=== PATIENT | male | born 1950 | race Caucasian/White ===

== ENCOUNTER 2018-12-31 12:05 | Observation (INO) ==
--- NOTE | 2018-12-31 13:00 | History & Physical Report ---
Date of Encounter: 12/31/18 Time of Encounter: 12:50 24 Hour HP Update - Instructions Instructions: If the History and Physical is less than 30 days old and was completed prior to A.M. admission and or procedure and has NOT been updated on calendar day of procedure please complete this update prior to performing procedure. - Update Patient reports changes in Medical Condition: No Changes in examination, assessment, or condition: No Changes in Medication: No Preop tests/diagnostics Reviewed: Yes Surgery Remains Indicated: Yes Consent for Planned Operative Procedure(s) Verified: Yes
--- NOTE | 2018-12-31 13:06 | Anesthesia Evaluation PreOp ---
Date of Encounter: 12/31/18 Time of Encounter: 13:04 - Past History Planned Operation: ERCP Cardiac History: HTN, Hyperlipidemia, Other (Cardiology consult during hospitalization : Troponins elevated at 0.04 -> 0.09 -> 0.03 Elevations likely 2/2 sepsis with pneumonia No chest pain EKG without ischemic changes Pt denies any previous cardiac history, however does have HTN and DM2 which was recently diagnosed Medication review dose show daily 81mg ASA. Continue Do not believe further cardiac workup is indicated at this time, however echocardiogram was discussed with pt. He is currently declining all cardiac workup including echo and/or stress testing, stating "if I have to do it I would rather do it at the OR". Cardiology will sign off at this time. Please call with any questions. 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: Other (Bipolar disorder, schizophrenia) Other Medical History: Hepatic (October 2018 - hospitalized for liver abscess/sepsis/pneumonia secondary to intra-hepatic gallbladder rupture - required percutaneous drainage/abx), Diabetes Type II (well controlled; not insulin dependent), Other (BMI 43) Anesthesia History: No Prior Anesthetic Complications, Past Anesthesia (tonsillectomy, endoscopy) Alcohol Use: none Drug use: none Medications and Allergies Allopurinol [Zyloprim] 300 mg PO DAILY 11/05/18 [History] Aripiprazole Lauroxil [Aristada] 400 mg IM Q28D 11/05/18 [History] Aspirin [Lo-Dose Aspirin EC] 81 mg PO DAILY 11/05/18 [History] Dextran 70/Hypromellose/Pf [Artificial Tears Drops] 1 drop BOTH EYES TID 11/05/18 [History] Divalproex (24 HR) [Depakote ER (24 HR)] 1,500 mg PO HS 11/05/18 [History] Finasteride [Proscar] 5 mg PO DAILY 11/05/18 [History] Furosemide [Lasix] 40 mg PO DAILY 11/05/18 [History] Gabapentin [Neurontin] 200 mg PO HS 11/05/18 [History] Imatinib Mesylate [Gleevec] 400 mg PO DAILY 11/05/18 [History] Loperamide [Imodium] 4 mg PO DAILY 11/05/18 [History] Metoprolol Tartrate [Lopressor] 25 mg PO BID 11/05/18 [History] Tamsulosin [Flomax] 0.4 mg PO DAILY 11/05/18 [History] Tiotropium [place] [Spiriva Respimat] 2 puff IN DAILY 11/05/18 [History] amLODIPine [Norvasc] 10 mg PO DAILY 11/05/18 [History] metFORMIN [Glucophage] 500 mg PO BIDWM 11/05/18 [History] Amoxicillin/Clavulanate [Augmentin] 875 mg PO BIDWM #8 tablet 11/10/18 [Rx] Budesonide/Formoterol 160/4.5 [Symbicort 160/4.5] 2 puff IH BIDR #60 inh 11/10/18 [Rx] Allergy/AdvReac Type Severity Reaction Status Date / Time No Known Allergies Allergy Verified 11/04/18 18:23 - Meds/Allergy Pre-op Review Medications Reviewed: Yes Allergies Reviewed: Yes Beta Blockers on Current Med List: Yes If Beta Blockers taken, Date/Time (Last Dose taken): 12-30-18 metoprolol 17:00 Anesthesia Results - Labs Laboratory Tests 11/05/18 11/08/18 11/30/18 17:09 02:56 22:00 WBC 9.9 Hgb 12.3 L Hct 39.2 Plt Count 281 PT 14.6 H INR 1.3 Sodium Potassium Chloride Carbon Dioxide BUN Creatinine Est GFR ( Amer) Est GFR (Non-Af Amer) BUN/Creatinine Ratio Glucose Est Mean Plasma Glucose 140 Hemoglobin A1c 6.5 H Calculated Osmolality Calcium Total Bilirubin Direct Bilirubin Indirect Bilirubin AST ALT Alkaline Phosphatase 11/30/18 22:00 WBC Hgb Hct Plt Count PT INR Sodium 142 Potassium 4.4 Chloride 101 Carbon Dioxide 32 H BUN 16 Creatinine 0.89 Est GFR ( Amer) > 60 Est GFR (Non-Af Amer) > 60 BUN/Creatinine Ratio 18 Glucose 106 H Est Mean Plasma Glucose Hemoglobin A1c Calculated Osmolality 296 Calcium 8.9 Total Bilirubin 0.5 Direct Bilirubin 0.2 Indirect Bilirubin 0.3 AST 14 ALT 9 Alkaline Phosphatase 68 - Imaging EKG: report reviewed, image reviewed (SINUS TACHYCARDIA BORDERLINE RIGHT AXIS DEVIATION ABNORMAL RHYTHM ECG) Additional studies: TTE: Impressions: LVEF 60%. Normal right ventricular structure and function. Mild mitral regurgitation. Mild tricuspid regurgitation. Mild pulmonary hypertension. Anesthesia Exam Last Vital Signs Temp 97.9 F 12/31/18 12:26 Pulse 93 12/31/18 12:26 Resp 18 12/31/18 12:26 BP 118/80 12/31/18 12:26 Pulse Ox 95 12/31/18 12:26 Weight: 129 kg NPO (# of Hours): > 8 hrs - HEENT Pupil (Motor): Pupils equal, EOMI Mallampati: III Teeth: Edentulous Oral Opening: Greater than 3 - PLANIMETER OPERATOR LOC: Oriented - Cardiac Rhythm: Regular Murmur: None - Pulmonary Breath Sounds: bilateral Clear Respiratory Effort: Symmetrical Anesthesia Assess/Plan ASA Score: 3 Level of consciousness: Cooperative Anesthetic Plan: General Monitoring Plan: Standard Monitors Recovery Plan: PACU
[2018-12-31] MEDS ORDERED: *HR* Promethazine 25 MG/ML VIAL IVP PRN (13:11)
[2018-12-31] MEDS ORDERED: *HR* OxyCODONE Immed Rel 5 MG TABLET PO PRN ×2 (13:11→20:59)
[2018-12-31] MEDS ORDERED: Ringers Solution, Lactated 1,000 ML IVC SCH ×2 (13:15→21:00)
[2018-12-31] MEDS ORDERED: *HR* FentaNYL (PF) 100 MCG/2 ML VIAL ONE (13:24)
[2018-12-31] MEDS ORDERED: Indomethacin 50 MG SUPP.RECT RC ONE (13:26)
[2018-12-31] MEDS ORDERED: Albuterol 2.5 MG/3 ML NEBULIZER IH ONE (16:25)
[2018-12-31] MEDS ORDERED: Albuterol 2.5 MG/3 ML NEBULIZER ONE (16:26)
--- NOTE | 2018-12-31 17:20 | Anesthesia Evaluation Post Op ---
Date of Encounter: 12/31/18 Time of Encounter: 17:17 - Vital Signs Vital Signs: Last Vital Signs Temp 97.7 F 12/31/18 15:18 Pulse 89 12/31/18 16:51 Resp 20 12/31/18 16:51 BP 153/78 12/31/18 16:51 Pulse Ox 94 12/31/18 16:51 On 2L nc - Lungs Lungs: Clear Ascult./Percussion - Airway Airway: Non-obstructed - Cardiovascular Irregular Rate, New Rhythm - Mental Status Mental Status: Alert & Oriented, Answers Appropriately - Pain Pain Scale: 0 - Nausea Vomiting Nausea Vomiting: Not Present - Hydration Hydration: Tolerates oral liquids - Discharge PostOp Status: Transfer Patient to floor (Patient is unable to maintain his oxygenation with minimal exertion (walking to the bathroom). Of note, he also developed atrial fibrillation (a new condition for him) while under general anesthesia that persisted during recovery. Although he develops dyspnea with exertion (walking to the restroom), while sitting upright with a nasal canula, he is asymptomatic. He was recently hospitalized (late October 2018) for sepsis caused from a hepatic abscess the result of intra-hepatic gallbladder rupture. He was also diagnosed with pneumonia at that time. He was also seen by cardiology at that time (for mildly elevated troponins), suspecting demand ischemia related to the sepsis/pneumonia. His TTE was unremarkable. For multiple reasons, he will be admitted to the hospitalist service.)
[2018-12-31] MEDS ORDERED: *HR* Succinylcholine 200 MG/10 ML VIAL IVP ONE (18:46)
[2018-12-31] MEDS ORDERED: Lidocaine 2% Syringe 100 MG/5 ML IV ONE (18:46)
[2018-12-31] MEDS ORDERED: Ondansetron 4 MG/2 ML VIAL IVP ONE (18:46)
[2018-12-31] MEDS ORDERED: Lidocaine -MPF 4% 5 ML AMPUL INFILT ONE (18:46)
[2018-12-31] MEDS ORDERED: *HR* Propofol 200 MG/20 ML VIAL IVP ONE (18:46)
[2018-12-31] MEDS ORDERED: traMADol 50 MG TABLET PO PRN (20:59)
[2018-12-31] MEDS ORDERED: Acetaminophen 325 MG TABLET PO PRN (20:59)
[2018-12-31] MEDS ORDERED: Naloxone 0.4 MG/ML INJ IVP PRN (20:59)
[2018-12-31] MEDS ORDERED: *HR* Dextrose 50 % in Water (Syg) 50 ML SYRINGE IVP PRN (20:59)
[2018-12-31] MEDS ORDERED: Dextrose Gel 15 GM/37.5 ML TUBE PO PRN ×2 (20:59)
[2018-12-31] MEDS ORDERED: Ipratropium/Albuterol Neb 3 ML IH PRN (21:01)
--- NOTE | 2018-12-31 21:17 | Internal Med History&Physical ---
Date of Encounter: 12/31/18 Time of Encounter: 21:16 Internal Medicine - H&P: HPI Chief complaint: afib Admitted From: Home Plans for Post Hospital Care: Home History of present illness: Jose Juan Gamino is a 68-year-old morbidly obese man with hypertension, diabetes, diastolic heart failure and COPD from an active smoking history who was admitted here 2 months ago with sepsis and found to have acute cholecystitis and a liver abscess complicated by bacteremia from a perforated gallbladder. A WILLIAM drain was placed and sent home on antibiotics, scheduled for outpatient cholecystectomy. Repeat abdomen CT done 3 weeks ago shows near-complete resolution of the fluid collection and newly found choledocholithiasis which seemed to explain the ongoing drainage in the right upper quadrant drain. He underwent an ERCP today with placement of a stent in the common bile duct. It is stated that during the procedure well under general anesthesia he developed atrial fibrillation which apparently is a new condition for him and it persisted during his recovery period. As such it was determined he be admitted for ongoing observation. The time of my assessment he is lying comfortably in bed in no acute distress req uesting to eat food and drink liquids as he has been nothing by mouth since the morning. He offers no complaints at this time and feels well. Vitals: Reviewed General: He is a white male lying in bed in NAD. Skin: Pale, warm and dry. HEENT: Moist mucous membranes. No conjunctivae pallor. Neck: No lymphadenopathy. No JVD. No carotid bruits. No palpable thyroid. Chest: Normal thoracic expansion. Normal breath sounds. Clear to auscultation. Heart: Irregularly irregular. No rubs or murmurs. Abdomen: Distended, soft and non-tender to palpation. No peritoneal reaction. WILLIAM drain in RUQ with yellowish content in the bulb. Extremities: No clubbing, cyanosis. 1+ lower leg edema. No calf tenderness. Normal distal pulses. Neurological: Awake, alert and oriented to person, place and time. No focal deficits. Psych: Affect appropriate. Assessment/Plan 1. Intraoperative atrial fibrillation: As reported by the anesthesiologist. EKG performed subsequently is questionable for afib. Will repeat and observe on telemetry. Will obtain serum chemistries to ensure his electrolytes are within normal limits. At this time he appears to be rate controlled and not requiring urgent intervention. We will continue his home dose of metoprolol. He has an elevated [id number] score that would warrant anticoagulation. Will hold off on this for now during his immediate postoperative period to avoid the risk of bleeding. 2. Choledocolithaisis: S/p CBD stent. Will follow with GI as an outpatient. 3. Liver abscess: Had been receiving an unspecified course of abx. Last imaging showed near resolution. Continue to follow with surgery for ongoing care and management of WILLIAM drain. 4. Hypertension: Continue amlodipine 10 mg daily. 5. Diabetes: Adequate control with an A1c of 6.5%. We will place on insulin sliding scale. 6. COPD: Currently inactive without signs of acute exacerbation. Will place on AUGUSTUS prn with LABA/ICS daily. Past Med Surg Social Fam HX - Past Medical History Medical history: cancer, COPD, diabetes, hyperlipidemia, hypertension, kidney stones Additional medical history: liver abcess, acute cholecystitits, BPH, renal abcess, gout, chronic myeloid leukemia, sleep apnea Psychiatric history: bipolar, schizophrenia - Past Surgical History Surgical History: orthopedic, other, tonsillectomy Additional surgical history: liver/abdominal abcess drain placed - Social History Smoking Status: Former smoker Smokeless Tobacco Status: No Alcohol use: none Drug use: none - Family History Father Hx Family Cardiac Disorders: Yes (HTN) Mother Hx Family Endocrine Disorder: Yes (DM) Internal Medicine - H&P: Meds Allopurinol [Zyloprim] 300 mg PO DAILY 11/05/18 [History] Aripiprazole Lauroxil [Aristada] 400 mg IM Q28D 11/05/18 [History] Aspirin [Lo-Dose Aspirin EC] 81 mg PO DAILY 11/05/18 [History] Dextran 70/Hypromellose/Pf [Artificial Tears Drops] 1 drop BOTH EYES TID 11/05/18 [History] Divalproex (24 HR) [Depakote ER (24 HR)] 1,500 mg PO HS 11/05/18 [History] Finasteride [Proscar] 5 mg PO DAILY 11/05/18 [History] Furosemide [Lasix] 40 mg PO DAILY 11/05/18 [History] Gabapentin [Neurontin] 200 mg PO HS 11/05/18 [History] Imatinib Mesylate [Gleevec] 400 mg PO DAILY 11/05/18 [History] Loperamide [Imodium] 4 mg PO DAILY 11/05/18 [History] Metoprolol Tartrate [Lopressor] 25 mg PO BID 11/05/18 [History] Tamsulosin [Flomax] 0.4 mg PO DAILY 11/05/18 [History] Tiotropium [place] [Spiriva Respimat] 2 puff IN DAILY 11/05/18 [History] amLODIPine [Norvasc] 10 mg PO DAILY 11/05/18 [History] metFORMIN [Glucophage] 1,000 mg PO BIDWM 11/05/18 [History] Amoxicillin/Clavulanate [Augmentin] 875 mg PO BIDWM #8 tablet 11/10/18 [Rx] Budesonide/Formoterol 160/4.5 [Symbicort 160/4.5] 2 puff IH BIDR #60 inh 11/10/18 [Rx] Albuterol Neb [Proventil Neb] TID 12/31/18 [History] Albuterol Sulfate [Proair Respiclick] 2 puff Q6H PRN 12/31/18 [History] Ipratropium [place] 2 puff QID 12/31/18 [History] Allergy/AdvReac Type Severity Reaction Status Date / Time lisinopril AdvReac See Verified 12/31/18 13:46 Comments All Systems PM: A 10-system review of systems was performed and is negative for pertinent findings except as documented above in the HPI. - Constitutional Vitals: Temp Pulse Resp BP Pulse Ox 97.6 F 87 16 149/75 93 12/31/18 18:33 12/31/18 18:33 12/31/18 18:33 12/31/18 18:33 12/31/18 18:33 Exam: . Internal Med - H&P Results - Impressions ITS Impressions Cath/Invasive Procedure 12/31/18 14:53 IMPRESSION: Placement of a common bile duct stent. Choledocholithiasis seen on earlier CT is not appreciated on this study. Please refer to the procedure report for further details. D/ / 12/31/2018 15:33:15 Graciel[facility] Garcia MD / [facility] Interpreting Provider: Graciela Garcia MD - Time Spent With Patient Total time spent is greater than 50% in coordination of care (as documented) at patient's floor/unit and/or counseling patient: Greater than 35 minutes
[2018-12-31] MEDS: Insulin LISPRO 300 UNITS/3 ML VIAL SQ SCH (21:48)
[2018-12-31] MEDS: Budesonide/Formoterol 160/4.5 1 PUFF INH IH SCH (21:59)
[2018-12-31] MEDS: Gabapentin 100 MG CAPSULE PO SCH (22:00)
[2018-12-31] MEDS: Divalproex (24 HR) 500 MG TABLET PO SCH (22:00)
[2018-12-31] MEDS: *HR* Heparin 5,000 UNIT/ML VIAL SQ SCH (22:03)
[2018-12-31 22:10] LABS: Basophils % 0.1 %; Hematocrit 41.1 % (37.5-50.1); Hemoglobin 13.2 g/dL (12.9-16.9); Immature Granulocytes % 0.2 % (0-4); Lymphocytes # 0.7 K/mcL (0.6-4.6); Lymphocytes % 7.9 %; Mean Corpuscular HGB Conc 32.1 g/dL (31.6-35.5); Mean Corpuscular Hemoglobin 33.2 pg (28.0-33.3); Mean Corpuscular Volume 103.3 fL (83.0-100.0); Mean Platelet Volume 10.5 fL (9.4-12.4); Monocytes # 0.1 K/mcL (0.0-1.3); Monocytes % 0.5 %; Neutrophils # 8.3 K/mcL (1.6-8.9); Platelet Count 242 K/mcL (140-400); Red Blood Count 3.98 M/mcL (4.19-5.50); Red Cell Distribution Width 15.1 % (11.5-14.5); Segmented Neutrophils % 91.3 %
[2018-12-31 22:17] LABS: Prothrombin Time 11.6 Seconds (9.4-12.1)
[2018-12-31 22:20] LABS: Activated Partial Thrombo Time 37.2 Seconds (26.0-36.0)
[2018-12-31 22:31] LABS: BUN/Creatinine Ratio 19 (6-26); Blood Urea Nitrogen 12 mg/dL (8-23); Calcium 8.7 mg/dL (8.6-10.3); Carbon Dioxide 29 mEq/L (23-29); Chloride 103 mEq/L (98-107); Glucose 175 mg/dL (70-105); Osmolality,Calculated 294 (280-300); Potassium 4.4 mEq/L (3.5-5.1); Sodium 140 mEq/L (136-145); eGFR For Non-African Americans > 60 (> 60)
[2018-12-31 22:32] LABS: Troponin I < 0.03 ng/mL (< 0.04)
[2019-01-01] MEDS: *HR* Heparin 5,000 UNIT/ML VIAL SQ SCH ×3 (05:57→21:01)
[2019-01-01] MEDS: Budesonide/Formoterol 160/4.5 1 PUFF INH IH SCH ×2 (08:12→20:22)
[2019-01-01] MEDS: Finasteride 5 MG TABLET PO SCH (08:57)
[2019-01-01] MEDS: Aspirin Enteric Coated 81 MG Tablet PO SCH (08:58)
[2019-01-01] MEDS: amLODIPine 5 MG TABLET PO SCH (08:58)
[2019-01-01] MEDS: Insulin LISPRO 300 UNITS/3 ML VIAL SQ SCH ×4 (09:45→21:04)
--- NOTE | 2019-01-01 09:47 | Internal Med Progress Note ---
Hospitalist Progress Note - Encounter Date of Encounter: 01/01/19 Time of Encounter: 08:38 - Subjective Interval History: Patient seen and examined this morning at bedside. No acute overnight events. Resting comfortably. Denies any nausea vomiting or diarrhea. Denies any difficulty breathing, chest pain, palpitation or lightheadedness. - Exam Vitals: Temp Pulse Resp BP Pulse Ox 97.5 F L 73 16 155/80 95 01/01/19 06:37 01/01/19 06:37 01/01/19 08:15 01/01/19 06:37 01/01/19 08:15 Exam: General: In no acute distress. Respiratory exam: CTAB. no accessory muscle use, rales, rhonchi, wheezes Cardiovascular exam: irregular, +S1, +S2. no murmur, gallop, rubs. GI/Abdominal exam: Non-tender, Non-distended, soft, no peritoneal signs. WILLIAM drain in RUQ with yellowish brown content. Extremities exam: 1+ pedal edema on Rt leg, trace on Lt, pulses palpable in b/l lower extremities. no calf tenderness Neurological exam: CN II-XII intact, AO X3, no focal deficits. Skin exam: No skin rash - Summary of Assessment and Plan Summary of Assessment and Plan: Assessment Acute New afib Choledocolithiasis lt leg swelling DVT prophylaxis Chronic Diastolic CHF Liver abscess HTN COPD DM Plan - Has afib episoded during ERCP during anesthesia. Repeat EKG with Afib and on tele. Not known. Continued on home metoprolol with good control. Not started on anticoagulation due to recent surgery. Has [id number] of 4. Previously had demand ischemia on last admission with sepsis. Will trend trop. Obtain TSH, phosphate and . No electrolyte abnormality. Denies previous CAD. Will consult cardiology for need for ischemic evaluation. Hold for anticoagulation for atleast 3 days per GI as patient had sphincterotomy. ECHO on 11/09/18 with EF of 60%, NWM, Intermediate DD, normal RV function - s/p ERCP with sphincterotomy and stent for Choledocolithaisis. To f/u GI as an outpatient. - Had finished course of antibiotics for Liver abscess with last imaging showed near resolution. To follow with surgery for ongoing care and management of WILLIAM drain. - c/w amlodipine - c/w SSI and accuchecks. Hold home OHA. - c/w symbicort and prn bronchodilator. Not in exacerbation - heparin sc for dvt prophylaxis. Has Lt leg swelling more than Rt. Obtain DVT study. - Time Spent with Patient Total time spent is greater than 50% in coordination of care (as documented) at patient's floor/unit and/or counseling patient: Internal Medicine: Result - Labs CBC & Chem 7: 12/31/18 21:42 12/31/18 21:42 Labs: Short CBC 12/31/18 Range/Units 21:42 WBC 9.1 (4.3-11.1) K/mcL Hgb 13.2 (12.9-16.9) g/dL Hct 41.1 (37.5-50.1) % Plt Count 242 (140-400) K/mcL Neutrophils # 8.3 (1.6-8.9) K/mcL BMP 12/31/18 21:42 Sodium 140 Potassium 4.4 Chloride 103 Carbon Dioxide 29 BUN 12 Creatinine 0.64 L Glucose 175 H Calcium 8.7 Cardiac Enzymes 12/31/18 Range/Units 21:42 Troponin I < 0.03 (< 0.04) ng/mL - ABG Interpretation ABG results: PT/INR, D-dimer PT 11.6 Seconds (9.4-12.1) 12/31/18 21:42 - Impressions Impressions Cath/Invasive Procedure 12/31/18 14:53 IMPRESSION: Placement of a common bile duct stent. Choledocholithiasis seen on earlier CT is not appreciated on this study. Please refer to the procedure report for further details. D/ / 12/31/2018 15:33:15 Graciela Garcia MD / [facility] Interpreting Provider: Graciela Garcia MD Consult Discharge Plan - Plan [facility]errals: [facility] [Primary Care Provider] -
--- NOTE | 2019-01-01 09:48 | Electrocardiograph Report ---
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
--- NOTE | 2019-01-01 11:07 | Event Note ---
Date of Encounter: 01/01/19 Time of Encounter: 11:05 ERCP completed yesterday by Dr. Garcia that showed choledocholithiasis which was removed with biliary sphincterotomy and balloon extraction, stent placed. Plan for stent removal and 6-8 weeks. Patient developed A. fib following procedure and was admitted to the hospital. No GI issues at this time. Recommend holding on anticoagulation for 3 days.
[2019-01-01 11:59] LABS: Phosphorous 2.1 mg/dL (2.7-4.5)
[2019-01-01 12:01] LABS: Troponin I < 0.03 ng/mL (< 0.04)
[2019-01-01] MEDS ORDERED: Potassium Phosphate 44 MEQ in 0.9 % Sodium Chloride 250 ML IVPB ONE (12:04)
[2019-01-01 12:12] LABS: Thyroid Stimulating Hormone 0.409 mcIU/mL (0.340-5.600)
--- NOTE | 2019-01-01 13:40 | Cardiology Consult Note ---
Date of Encounter: 01/01/19 Time of Encounter: 13:36 Assessment and Plan (1) Atrial fibrillation Current Visit: Yes Status: Acute Newly discovered atrial fibrillation: Patient unclear on whether he was previously diagnosed - He was not on AC at home. At this time, recommend rate control (on metoprolol) and anticoagulation (CHADSVASC 4) - GI requests waiting 3 days after procedure to start AC. Will herman check Xarelto. Can consider DCCV after 30 days of anticoagulation. Suspect untreated sleep apnea which can be addressed as outpatient. Denies chest pain - can consider outpatient ischemic evaluation when appropriate. Recommend optimizing fluid status since he appears congested on exam. Qualifiers: Atrial fibrillation type: unspecified Qualified Code(s): I48.91 - Unspecified atrial fibrillation (2) Acute diastolic CHF (congestive heart failure) Current Visit: Yes Status: Acute Acute on chronic diastolic CHF. Recommend IV diuresis. Discussion w patient/family: The assessment and plan as outlined above was discussed with the patient and/or family members who expressed understanding and agreement. All questions were answered. Thank you for involving us in the care of your patient. Please call with any questions. History of Present Illness Consult date: 01/01/19 Requesting physician: Coral Garcia Consult reason: AFIB Chief complaint: Home History of present illness: Mr. Gamino is a 68 year old male admitted after undergoing outpatient ERCP today for cholecystitis and perforated gallbladder. Reportedly, patient developed AFib during the procedure. He was admitted for observation. At the time of evaluation, the patient is sitting up in a chair eating in NAD. Patient denies recent chest pain. Admits to LE edema and LAMBERT. Denies palpitations. Tells me he thinks he was told he had AFIB a long time ago at the [facility]. He is unsure about details. He is not on anticoagulation. ECG 12/31/2018 reviewed demonstrating AFIB heart rate 67 bpm Labs reviewed; troponin negative, TSH WNL Echo 10/2018; LVEF normal, RV function normal, mild MR/TR, mild PHTN Past Med Surg Social Fam HX - Past Medical History Medical history: cancer, COPD, diabetes, hyperlipidemia, hypertension, kidney stones Additional medical history: liver abcess, acute cholecystitits, BPH, renal abcess, gout, chronic myeloid leukemia, sleep apnea Psychiatric history: bipolar, schizophrenia - Past Surgical History Surgical History: orthopedic, other, tonsillectomy Additional surgical history: liver/abdominal abcess drain placed - Social History Smoking Status: Former smoker Smokeless Tobacco Status: No Alcohol use: none Drug use: none - Family History Father Hx Family Cardiac Disorders: Yes (HTN) Mother Hx Family Endocrine Disorder: Yes (DM) Medications and Allergies Allopurinol [Zyloprim] 300 mg PO DAILY 11/05/18 [History] Aspirin [Lo-Dose Aspirin EC] 81 mg PO DAILY 11/05/18 [History] Divalproex (24 HR) [Depakote ER (24 HR)] 1,500 mg PO HS 11/05/18 [History] Finasteride [Proscar] 5 mg PO DAILY 11/05/18 [History] Furosemide [Lasix] 40 mg PO DAILY 11/05/18 [History] Gabapentin [Neurontin] 200 mg PO HS 11/05/18 [History] Imatinib Mesylate [Gleevec] 400 mg PO DAILY 11/05/18 [History] Loperamide [Imodium] 4 mg PO DAILY 11/05/18 [History] Tamsulosin [Flomax] 0.4 mg PO DAILY 11/05/18 [History] Tiotropium [place] [Spiriva Respimat] 2 puff IN DAILY 11/05/18 [History] Budesonide/Formoterol 160/4.5 [Symbicort 160/4.5] 2 puff IH BIDR #60 inh 11/10/18 [Rx] Albuterol Neb [Proventil Neb] TID 12/31/18 [History] 0.9 % Sodium Chloride [0.9 % Sodium Chloride PF in Syringe] 10 ml IVP AD 01/01/19 [History] Amlodipine Besylate 10 mg PO DAILY 01/01/19 [History] Aripiprazole [Abilify Maintena] 400 mg IM Q28D 01/01/19 [History] Clotrimazole 1% CRM [Lotrimin 1%] 1 appl TP BID MDD GROIN RASH 01/01/19 [History] Metformin HCl [Glucophage] 500 mg PO BID 01/01/19 [History] Metoprolol [Lopressor] 25 mg PO BID 01/01/19 [History] Propylene Glycol/Peg 400 [Systane 0.3-0.4% Eye Drops] 1 drop BOTH EYES TID 01/01/19 [History] Allergy/AdvReac Type Severity Reaction Status Date / Time hydrochlorothiazide Allergy See Verified 01/01/19 13:31 Comments lisinopril AdvReac See Verified 01/01/19 13:31 Comments All Systems Review: The remainder of the systems were reviewed and are negative except as noted in HPI - Cardiovascular Cardiovascular: as per HPI Physical Examination Vital Signs, Last 4 Hours Temp Pulse Resp BP Pulse Ox 01/01/19 11:35 97.5 F L 71 16 153/78 94 General: Conversant, No Apparent Distress HEENT: Mucus Membranes Moist Neck: Other (Mild elevation of JVP) Cardiac: Other (irregularly irregular, no murmur, normal S1/S2, no gallop or ru b) Lungs: Normal Breath Sounds, No Wheeze, Rales, Rhonchi Neuro: Alert and responsive, No focal deficits noted Abdomen: Soft, Other (bowel sounds present, drain in place) Extremities: Other (moderate BLE edema) Results 12/31/18 21:42 12/31/18 21:42 Lab Results 12/31/18 12/31/18 12/31/18 21:42 21:42 21:42 WBC 9.1 Hgb 13.2 Hct 41.1 Plt Count 242 INR 1.0 APTT 37.2 H Sodium 140 Potassium 4.4 Chloride 103 Carbon Dioxide 29 BUN 12 Creatinine 0.64 L Glucose 175 H Calcium 8.7 Magnesium 2.0 Troponin I < 0.03 TSH 01/01/19 11:19 WBC Hgb Hct Plt Count INR APTT Sodium Potassium Chloride Carbon Dioxide BUN Creatinine Glucose Calcium Magnesium Troponin I < 0.03 TSH 0.409 - Imaging and Cardiology Echo: report reviewed (10/2018) - EKG Interpretation EKG results cardiology: personally reviewed (AF HR 67 bpm, no acute findings) Consult Discharge Plan - Plan [facility]errals: [facility] [Primary Care Provider] -
[2019-01-01] MEDS: Furosemide 40 MG/4 ML VIAL IVP SCH (16:39)
[2019-01-01] MEDS: Divalproex (24 HR) 500 MG TABLET PO SCH (21:01)
[2019-01-01] MEDS: Gabapentin 100 MG CAPSULE PO SCH (21:01)
[2019-01-02] MEDS: *HR* Heparin 5,000 UNIT/ML VIAL SQ SCH ×2 (05:31→15:16)
[2019-01-02] MEDS: Budesonide/Formoterol 160/4.5 1 PUFF INH IH SCH (07:44)
[2019-01-02] MEDS: Insulin LISPRO 300 UNITS/3 ML VIAL SQ SCH ×3 (07:56→17:59)
[2019-01-02] MEDS: amLODIPine 5 MG TABLET PO SCH (09:53)
[2019-01-02] MEDS: Aspirin Enteric Coated 81 MG Tablet PO SCH (09:54)
[2019-01-02] MEDS: Finasteride 5 MG TABLET PO SCH (09:54)
[2019-01-02] MEDS: Furosemide 40 MG/4 ML VIAL IVP SCH ×2 (09:55→18:00)
--- NOTE | 2019-01-02 10:19 | AcuteCare Surgery Consult Note ---
<Ghazal Long N - Last Filed: 01/02/19 10:19> Date of Encounter: 01/02/19 Time of Encounter: 10:19 Assessment and Plan (1) Liver abscess Current Visit: No Status: Acute 68-year-old male who developed liver abscess after perforated gallbladder from acute cholecystitis and subsequently underwent WILLIAM drain placement 2 months ago. Acute care surgery consulted for WILLIAM drain management. On evaluation today, the WILLIAM drain has purulent fluid with some bilious staining. Approximate 30 mL output yesterday. Recommend continuing WILLIAM drain upon discharge and have the patient follow-up with general surgery on outpatient basis for further management and follow-up. History of Present Illness Consult date: 01/02/19 History of present illness: Patient is a 68-year-old male who recently was diagnosed with sepsis secondary to acute cholecystitis and perforated gallbladder with the formation of liver abscess 2 months ago. WILLIAM drain was placed and patient was sent home on antibiotics. Patient was admitted to the hospital after an outpatient ERCP and stent placement revealed A. fib. Acute care surgery was consulted regarding WILLIAM drain care. WILLIAM drain evaluated today and significant for purulent drainage, approximately 30 mL drained yesterday. Past Med Surg Social Fam HX - Past Medical History Medical history: cancer, COPD, diabetes, hyperlipidemia, hypertension, kidney stones Additional medical history: liver abcess, acute cholecystitits, BPH, renal abcess, gout, chronic myeloid leukemia, sleep apnea Psychiatric history: bipolar, schizophrenia - Past Surgical History Surgical History: orthopedic, other, tonsillectomy Additional surgical history: liver/abdominal abcess drain placed - Social History Smoking Status: Former smoker Smokeless Tobacco Status: No Alcohol use: none Drug use: none - Family History Father Hx Family Cardiac Disorders: Yes (HTN) Mother Hx Family Endocrine Disorder: Yes (DM) Medications and Allergies Allopurinol [Zyloprim] 300 mg PO DAILY 11/05/18 [History] Aspirin [Lo-Dose Aspirin EC] 81 mg PO DAILY 11/05/18 [History] Divalproex (24 HR) [Depakote ER (24 HR)] 1,500 mg PO HS 11/05/18 [History] Finasteride [Proscar] 5 mg PO DAILY 11/05/18 [History] Furosemide [Lasix] 40 mg PO DAILY 11/05/18 [History] Gabapentin [Neurontin] 200 mg PO HS 11/05/18 [History] Imatinib Mesylate [Gleevec] 400 mg PO DAILY 11/05/18 [History] Loperamide [Imodium] 4 mg PO DAILY 11/05/18 [History] Tamsulosin [Flomax] 0.4 mg PO DAILY 11/05/18 [History] Tiotropium [place] [Spiriva Respimat] 2 puff IN 0900 11/05/18 [History] Budesonide/Formoterol 160/4.5 [Symbicort 160/4.5] 2 puff IH BIDR #60 inh 11/10/18 [Rx] Albuterol Neb [Proventil Neb] 2.5 mg PO Q6H PRN 12/31/18 [History] Amlodipine Besylate 10 mg PO DAILY 01/01/19 [History] Aripiprazole [Abilify Maintena] 400 mg IM Q28D 01/01/19 [History] Clotrimazole 1% CRM [Lotrimin 1%] 1 appl TP BID MDD GROIN RASH 01/01/19 [History] Metformin HCl [Glucophage] 500 mg PO BID 01/01/19 [History] Metoprolol [Lopressor] 25 mg PO BID 01/01/19 [History] Propylene Glycol/Peg 400 [Systane 0.3-0.4% Eye Drops] 1 drop BOTH EYES TID 01/01/19 [History] Rivaroxaban [Xarelto] 20 mg PO DAILY 30 Days #30 tablet 01/01/19 [Rx] Allergy/AdvReac Type Severity Reaction Status Date / Time hydrochlorothiazide Allergy See Verified 01/01/19 13:31 Comments lisinopril AdvReac See Verified 01/01/19 13:31 Comments Review of Systems All systems PM: The remainder of the systems were reviewed and are negative - Constitutional no chills, no fever(s) - Cardiovascular no chest pain - Respiratory no dyspnea - Gastrointestinal no abdominal pain, no nausea, no vomiting - Integumentary no rash General Surgery Exam Initial Vital Signs Temp Pulse Resp BP Pulse Ox 97.9 F 93 18 118/80 95 12/31/18 12:26 12/31/18 12:26 12/31/18 12:26 12/31/18 12:26 12/31/18 12:26 - General physical appearance well developed, well nourished - Eyes PERRL, normal ocular movement - ENT normal pinna, normal nares - Neck trachea midline, no venous distension - Respiratory normal expansion - Cardiovascular Additional Comments: Irregular rhythm, rate in 70s - Abdomen Abdomen general surgery: Present: bowel sounds present, soft, non tender (WILLIAM drain in place, continues to drain fluid.) - Integumentary Integumentary general surgery: Present: warm and dry - Musculoskeletal Present: normal posture - Psychiatric Psychiatric general surgery: Present: A&Ox3 Exam Initial Vital Signs Temp Pulse Resp BP Pulse Ox 97.9 F 93 18 118/80 95 12/31/18 12:26 12/31/18 12:26 12/31/18 12:26 12/31/18 12:26 12/31/18 12:26 Results - Labs 12/31/18 21:42 12/31/18 21:42 Abnormal lab results RBC 3.98 M/mcL (4.19-5.50) L 12/31/18 21:42 MCV 103.3 fL (83.0-100.0) H 12/31/18 21:42 RDW 15.1 % (11.5-14.5) H 12/31/18 21:42 APTT 37.2 Seconds (26.0-36.0) H 12/31/18 21:42 Heparin Anti-Xa, Unfract 0.00 IU/mL (0.30-0.70) L 12/31/18 21:42 0.64 mg/dL (0.70-1.30) L 12/31/18 21:42 Glucose 175 mg/dL (70-105) H 12/31/18 21:42 POC Glucose 121 mg/dL (70-99) H 01/01/19 20:07 Phosphorus 2.1 mg/dL (2.7-4.5) L 01/01/19 11:19 Thyroid panel 01/01/19 Range/Units 11:19 TSH 0.409 (0.340-5.600) mcIU/mL Calcium panel 01/01/19 Range/Units 11:19 Phosphorus 2.1 L (2.7-4.5) mg/dL Pituitary panel 01/01/19 Range/Units 11:19 TSH 0.409 (0.340-5.600) mcIU/mL All other labs normal. Consult Discharge Plan - Plan [facility]errals: [facility] [Primary Care Provider] - Prescriptions: Rivaroxaban [Xarelto] 20 mg PO DAILY 30 Days #30 tablet <Daniele Dyson - Last Filed: 01/02/19 11:03> Date of Encounter: 01/02/19 Review of Systems All systems PM: The remainder of the systems were reviewed and are negative General Surgery Exam Initial Vital Signs Temp Pulse Resp BP Pulse Ox 97.9 F 93 18 118/80 95 12/31/18 12:12/31/18 12:12/31/18 12:12/31/18 12:12/31/18 12:26 Exam Initial Vital Signs Temp Pulse Resp BP Pulse Ox 97.9 F 93 18 118/80 95 12/31/18 12:12/31/18 12:12/31/18 12:12/31/18 12:12/31/18 12:26 Results - Labs 12/31/18 21:42 12/31/18 21:42 Abnormal lab results RBC 3.98 M/mcL (4.19-5.50) L 12/31/18 21:42 MCV 103.3 fL (83.0-100.0) H 12/31/18 21:42 RDW 15.1 % (11.5-14.5) H 12/31/18 21:42 APTT 37.2 Seconds (26.0-36.0) H 12/31/18 21:42 Heparin Anti-Xa, Unfract 0.00 IU/mL (0.30-0.70) L 12/31/18 21:42 0.64 mg/dL (0.70-1.30) L 12/31/18 21:42 Glucose 175 mg/dL (70-105) H 12/31/18 21:42 POC Glucose 121 mg/dL (70-99) H 01/01/19 20:07 Phosphorus 2.1 mg/dL (2.7-4.5) L 01/01/19 11:19 Thyroid panel 01/01/19 Range/Units 11: TSH 0.409 (0.340-5.600) mcIU/mL Calcium panel 01/01/19 Range/Units 11: Phosphorus 2.1 L (2.7-4.5) mg/dL Pituitary panel 01/01/19 Range/Units 11:19 TSH 0.409 (0.340-5.600) mcIU/mL All other labs normal. - Attending Attestation I examined this patient and my medical decision-making was reviewed with the Resident Physician. I agree with the documented findings, disposition and treatment plan as described except to the extent set forth below. The patient is seen and evaluated on acute care surgery rounds with the resident. He continues to have purulent bilious drainage from the known liver abscess. At this point the drain should remain in place. Follow-up with Dr. Lopez as previously scheduled.\\ Daniele Dyson MD FACS
[2019-01-02 12:20] VITALS: BP 122/79
--- NOTE | 2019-01-02 13:29 | Internal Med Progress Note ---
Hospitalist Progress Note - Encounter Date of Encounter: 01/02/19 Time of Encounter: 13:29 - Exam Vitals: Temp Pulse Resp BP Pulse Ox 98.0 F 73 16 122/79 96 01/02/19 12:00 01/02/19 12:00 01/02/19 12:00 01/02/19 12:00 01/02/19 12:00 - Time Spent with Patient Total time spent is greater than 50% in coordination of care (as documented) at patient's floor/unit and/or counseling patient: Internal Medicine: Result - Labs CBC & Chem 7: 12/31/18 21:42 12/31/18 21:42 - ABG Interpretation ABG results: PT/INR, D-dimer PT 11.6 Seconds (9.4-12.1) 12/31/18 21:42 - Impressions Impressions Cath/Invasive Procedure 12/31/18 14:53 IMPRESSION: Placement of a common bile duct stent. Choledocholithiasis seen on earlier CT is not appreciated on this study. Please refer to the procedure report for further details. D/ / 12/31/2018 15:33:15 Graciela Garcia MD / [email or web address] Interpreting Provider: Graciela Garcia MD Consult Discharge Plan - Plan [facility]errals: [facility] [Primary Care Provider] - Prescriptions: Rivaroxaban [Xarelto] 20 mg PO DAILY 30 Days #30 tablet
--- NOTE | 2019-01-02 14:35 | Cardiology Progress Note ---
Date of Encounter: 01/02/19 Time of Encounter: 14:30 Assessment and Plan (1) Atrial fibrillation Current Visit: Yes Status: Acute Per Cardiology: Apparent new onset atrial fibrillation. Remains rate controlled on beta damon in the 70s. Titrate beta damon if needed. Per Dr. Greene, "can consider DCCV after 30 days of anticoagulation. Suspect untreated sleep apnea which can be addressed as outpatient. Denies chest pain - can consider outpatient ischemic evaluation when appropriate". (CHADSVASC 4) - Per Dr. Greene, GI requests waiting 3 days after procedure to start AC; herman check completed for Xarelto with cost of $11 per month. Currently on aspirin. Recommend start Xarelto 20mg PO daily tomorrow. Cardiology signing off, reconsult as needed, follow-up arranged. All questions answered. Qualifiers: Atrial fibrillation type: unspecified Qualified Code(s): I48.91 - Unspecified atrial fibrillation Discussion w patient/family: The assessment and plan as outlined above was discussed with the patient and/or family members who expressed understanding and agreement. All questions were answered. Thank you for involving us in the care of your patient. Please call with any questions. Subjective Principal diagnosis: Afib Interval history: Denies any chest pain, shortness of breath, palpitations. Denies any active bleeding or blood loss. Objective Vital Signs, Last 4 Hours Temp Pulse Resp BP Pulse Ox 01/02/19 12:00 98.0 F 73 16 122/79 96 General: Conversant, No Apparent Distress HEENT: Atraumatic, Normocephaly, Mucus Membranes Moist Neck: No JVD, Normal carotid pulses Cardiac: No Murmur Lungs: Normal Breath Sounds, No Wheeze, Rales, Rhonchi Neuro: Alert and responsive, No focal deficits noted Abdomen: Soft, Non-Tender Skin: No rashes noted on visualized skin Musculoskeletal: No Chest Wall Tenderness Extremities: No Clubbing, No Cyanosis, Normal Pulses, Other (+1 bilateral lower extremity nonpitting edema) Results 12/31/18 21:42 12/31/18 21:42 Laboratory Tests 12/31/18 12/31/18 12/31/18 21:42 21:42 21:42 Hgb 13.2 Hct 41.1 INR 1.0 Magnesium 2.0 Troponin I < 0.03 TSH 01/01/19 11:19 Hgb Hct INR Magnesium Troponin I < 0.03 TSH 0.409 ITS Impressions Cath/Invasive Procedure 12/31/18 14:53 IMPRESSION: Placement of a common bile duct stent. Choledocholithiasis seen on earlier CT is not appreciated on this study. Please refer to the procedure report for further details. D/ / 12/31/2018 15:33:15 Graciela Garcia MD / [email or web address] [[email or web address] Interpreting Provider: Graciela Garcia MD Active Medications Acetaminophen (Tylenol) 650 mg PO Q6H PRN PRN Reason: Mild Pain/Fever Stop: 07/02/19 21:00 Albuterol/Ipratropium (Duoneb) 3 ml IH [id number] PRN PRN Reason: Shortness Of Breath/Wheezing Stop: 07/02/19 21:02 Last Admin: 12/31/18 22:06 Dose: 3 ml Documented by: Amlodipine Besylate (Norvasc) 10 mg PO DAILY MAREN; Protocol Stop: 07/03/19 09:01 Last Admin: 01/02/19 09:53 Dose: 10 mg Documented by: Aspirin (Aspirin Ec) 81 mg PO DAILY MAREN Stop: 07/03/19 09:01 Last Admin: 01/02/19 09:54 Dose: 81 mg Documented by: Budesonide/Formoterol Fumarate (Symbicort) 2 puff IH BIDR MAREN; Protocol Stop: 07/02/19 22:01 Last Admin: 01/02/19 07:44 Dose: 2 puff Documented by: Dextrose/Water (Dextrose 50% (Syg)) 25 ml IVP AD PRN PRN Reason: Hypoglycemia Stop: 07/02/19 21:00 Divalproex Sodium (Depakote Er (24 Hr)) 1,500 mg PO HS MAREN Stop: 07/02/19 21:01 Last Admin: 01/01/19 21:01 Dose: 1,500 mg Documented by: Docusate Sodium (Colace) 100 mg PO BID PRN; Protocol PRN Reason: Constipation Stop: 07/03/19 20:40 Last Admin: 01/01/19 21:01 Dose: 100 mg Documented by: Finasteride (Proscar) 5 mg PO DAILY [facility]; Protocol Stop: 07/03/19 09:01 Last Admin: 01/02/19 09:54 Dose: 5 mg Documented by: Furosemide (Lasix) 40 mg IVP BIDDIURETIC [facility] Stop: 07/03/19 17:01 Last Admin: 01/02/19 09:55 Dose: 40 mg Documented by: Gabapentin (Neurontin) 200 mg PO HS [facility] Stop: 07/02/19 21:01 Last Admin: 01/01/19 21:01 Dose: 200 mg Documented by: Glucose (Gluctose) 15 gm PO ONCE PRN PRN Reason: Hypoglycemia Stop: 07/02/19 21:00 Glucose (Gluctose) 30 gm PO ONCE PRN PRN Reason: Hypoglycemia Stop: 07/02/19 21:00 Guaifenesin (Mucinex) 600 mg PO BID PRN PRN Reason: Congestion Stop: 07/03/19 20:07 Heparin Sodium (Porcine) (Heparin) 5,000 unit SQ Q8HCO [facility] Stop: 07/02/19 22:01 Last Admin: 01/02/19 05:31 Dose: 5,000 unit Documented by: Insulin Human Lispro (Humalog) 0 units SQ HS [facility]; Protocol Stop: 07/02/19 21:01 Last Admin: 01/01/19 21:04 Dose: Not Given Documented by: Insulin Human Lispro (Humalog) 0 units SQ TIDAC [facility]; Protocol Stop: 07/03/19 07:31 Last Admin: 01/02/19 11:53 Dose: Not Given Documented by: Metoprolol Tartrate (Lopressor) 25 mg PO BID [facility] Stop: 07/02/19 21:01 Last Admin: 01/02/19 09:54 Dose: 25 mg Documented by: Naloxone HCl (Narcan) 0.4 mg IVP Q2MPRN PRN PRN Reason: SEE COMMENTS Stop: 07/02/19 21:00 Oxycodone HCl (Roxicodone) 10 mg PO Q6H PRN PRN Reason: Severe Pain Stop: 07/02/19 21:00 Promethazine HCl (Phenergan) 6.25 mg IVP Q5MPRN PRN PRN Reason: Nausea And Vomiting Tamsulosin HCl (Flomax) 0.4 mg PO DAILY [facility]; Protocol Stop: 07/03/19 09:01 Last Admin: 01/02/19 09:54 Dose: 0.4 mg Documented by: Tramadol HCl (Ultram) 50 mg PO Q6H PRN PRN Reason: Moderate Pain Stop: 07/02/19 21:00 - Imaging and Cardiology Echo: report reviewed Consult Discharge Plan - Plan [facility]errals: [facility] [Primary Care Provider] - Prescriptions: Rivaroxaban [Xarelto] 20 mg PO DAILY 30 Days #30 tablet
--- NOTE | 2019-01-02 15:53 | Discharge Summary ---
- NOTES TO OUTPATIENT PROVIDER Notes to Outpatient Provider: Follow-up with PCP in 3-5 days. Keep follow-up appointment with general surgeon about WILLIAM drain. Follow-up with cardiology in 1 week-for outpatient ischemic workup. Follow-up GI specialists in 1 weeks. Sleep study can be considered outpatient by PCP. Increased furosemide 40 mg by mouth twice a day-needs to monitor and further adjustment in dose by PCP as needed Date of Encounter: 01/02/19 Time of Encounter: 15:49 - Discharge Diagnosis (1) Acute diastolic CHF (congestive heart failure) Priority: Primary Status: Acute (2) Atrial fibrillation Priority: Primary Status: Acute Qualifiers: Atrial fibrillation type: unspecified Qualified Code(s): I48.91 - Unspecified atrial fibrillation (3) Acute on chronic respiratory failure with hypoxia and hypercapnia Priority: Primary Status: Acute (4) DM2 (diabetes mellitus, type 2) Priority: Secondary Status: Acute Qualifiers: Diabetes mellitus retirement insulin use: without intermediate school 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 Gamino is a 68 year old male patient had episode of A. fib with RVR during ERCP under anesthesia. Patient is status post s/p ERCP with sphincterotomy and stent for Choledocolithaisis. To f/u GI as an outpatient. A. fib with RVR -normal sinus rhythm with controlled rate. Continued on home metoprolol with good control. Not started on anticoagulation due to recent surgery and GI advised to hold anticoagulation for 3 days. Patient supposed to his start anticoagulation tomorrow 2018 on Xarelto. Has [id number] of 4. Cardiology consulted who is okay to discharge patient with outpatient ischemic evaluation,"can consider DCCV after 30 days of anticoagulation. Liver abscess-after perforated gallbladder from acute cholecystitis. Completed course of antibiotics but is still on WILLIAM drain therefore general surgeon consulted by advised to follow outpatient with his surgeon. WILLIAM drain had 30 mL of purulent fluid Last 24-hour period 6 minute walk test done and patient did not qualify for home oxygen At the time of discharge patient clinically hemodynamically is stable, tolerating oral diet and ambulating in hallway and feel like almost back to baseline. Does not require oxygen. Discharge discussed with: patient - Time Spent with Patient Total time spent providing and/or coordinating discharge services: Time spent: Less than 30 minutes - Discharge Medications Prescriptions: New Rivaroxaban [Xarelto] 20 mg PO DAILY 30 Days #30 tablet Continued Allopurinol [Zyloprim] 300 mg PO DAILY Aspirin [Lo-Dose Aspirin EC] 81 mg PO DAILY Divalproex (24 HR) [Depakote ER (24 HR)] 1,500 mg PO HS Finasteride [Proscar] 5 mg PO DAILY Gabapentin [Neurontin] 200 mg PO HS Imatinib Mesylate [Gleevec] 400 mg PO DAILY Loperamide [Imodium] 4 mg PO DAILY Tiotropium [place] [Spiriva Respimat] 2 puff IN 0900 Tamsulosin [Flomax] 0.4 mg PO DAILY Budesonide/Formoterol 160/4.5 [Symbicort 160/4.5] 2 puff IH BIDR #60 inh Albuterol Neb [Proventil Neb] 2.5 mg PO Q6H PRN PRN Reason: BREATHING Amlodipine Besylate 10 mg PO DAILY Aripiprazole [Abilify Maintena] 400 mg IM Q28D Clotrimazole 1% CRM [Lotrimin 1%] 1 appl TP BID MDD GROIN RASH Metformin HCl [Glucophage] 500 mg PO BID Metoprolol [Lopressor] 25 mg PO BID Propylene Glycol/Peg 400 [Systane 0.3-0.4% Eye Drops] 1 drop BOTH EYES TID Changed Furosemide [Lasix] 40 mg PO BID #60 tablet Home Medications: Allopurinol [Zyloprim] 300 mg PO DAILY 11/05/18 [History] Aspirin [Lo-Dose Aspirin EC] 81 mg PO DAILY 11/05/18 [History] Divalproex (24 HR) [Depakote ER (24 HR)] 1,500 mg PO HS 11/05/18 [History] Finasteride [Proscar] 5 mg PO DAILY 11/05/18 [History] Gabapentin [Neurontin] 200 mg PO HS 11/05/18 [History] Imatinib Mesylate [Gleevec] 400 mg PO DAILY 11/05/18 [History] Loperamide [Imodium] 4 mg PO DAILY 11/05/18 [History] Tamsulosin [Flomax] 0.4 mg PO DAILY 11/05/18 [History] Tiotropium [place] [Spiriva Respimat] 2 puff IN 0900 11/05/18 [History] Budesonide/Formoterol 160/4.5 [Symbicort 160/4.5] 2 puff IH BIDR #60 inh 11/10/18 [Rx] Albuterol Neb [Proventil Neb] 2.5 mg PO Q6H PRN 12/31/18 [History] Amlodipine Besylate 10 mg PO DAILY 01/01/19 [History] Aripiprazole [Abilify Maintena] 400 mg IM Q28D 01/01/19 [History] Clotrimazole 1% CRM [Lotrimin 1%] 1 appl TP BID MDD GROIN RASH 01/01/19 [History] Metformin HCl [Glucophage] 500 mg PO BID 01/01/19 [History] Metoprolol [Lopressor] 25 mg PO BID 01/01/19 [History] Propylene Glycol/Peg 400 [Systane 0.3-0.4% Eye Drops] 1 drop BOTH EYES TID 01/01/19 [History] Rivaroxaban [Xarelto] 20 mg PO DAILY 30 Days #30 tablet 01/01/19 [Rx] Furosemide [Lasix] 40 mg PO BID #60 tablet 01/02/19 [Rx] Allergies/Adverse Reactions: Allergy/AdvReac Type Severity Reaction Status Date / Time hydrochlorothiazide Allergy See Verified 01/01/19 13:31 Comments lisinopril AdvReac See Verified 01/01/19 13:31 Comments Date of admission: 12/31/18 20:56 [facility] care physician: [facility] Consults: 01/01/19 10:12 Consult to Cardiology [CONS] Routine Comment: Consulting Provider: Cardiology Heather Reason for Consult: Need for ischemic evaluation Call Completed: Yes 01/02/19 08:41 Consult to Surgery [CONS] Routine Consulting Provider: Acute Care Surgery Reason for Consult: liver abcess on WILLIAM drain- dc plan Call Completed: Yes - Constitutional Vitals: Temp Pulse Resp BP Pulse Ox 98.0 F 73 16 122/79 96 01/02/19 12:00 01/02/19 12:00 01/02/19 12:00 01/02/19 12:00 01/02/19 12:00 Exam: General: In no acute distress. Respiratory exam: CTAB. Cardiovascular exam: irregular, +S1, +S2. no murmur, gallop, rubs. GI/Abdominal exam: Non-tender, Non-distended, soft, no peritoneal signs. WILLIAM drain in RUQ with yellowish brown content. Extremities exam: 1+ pedal edema on Rt leg, trace on Lt, pulses palpable in b/l lower extremities. no calf tenderness Neurological exam: CN II-XII intact, AO X3, no focal deficits. Skin exam: No skin rash. - Patient Status Disposition: Home, Self-Care Condition: Fair Overall status at discharge: patient is back to baseline - Discharge Instructions Follow Up With: [facility] [Primary Care Provider] - - Diet and Activity Activity: as per the cardiac rehab Diet: low fat, low cholesterol, low salt diet
[2019-01-03] MEDS ORDERED: Tiotropium 18 MCG inhalation IH SCH (10:00)
== END 2019-01-02 18:47 | disposition home or self-care (01) ==
LOC: SUATTDRO → 3ANU 12:05 → ENDPAV 12:05 → 3ANU 18:03
PROVIDERS: ADMIT Internal Medicine Nephrology; ATTEND Internal Medicine

== ENCOUNTER 2020-09-20 20:46 | Inpatient (IN) ==
[2020-09-20 21:37] LABS: Basophils # 0.1 K/mcL (0.0-0.2); Basophils % 0.5 %; Hematocrit 27.3 % (37.5-50.1); Hemoglobin 8.6 g/dL (12.9-16.9); Immature Granulocytes % 1.4 % (0-4); Lymphocytes # 2.1 K/mcL (0.6-4.6); Lymphocytes % 9.4 %; Mean Corpuscular HGB Conc 31.5 g/dL (31.6-35.5); Mean Corpuscular Hemoglobin 33.5 pg (28.0-33.3); Mean Corpuscular Volume 106.2 fL (83.0-100.0); Mean Platelet Volume 9.5 fL (9.4-12.4); Monocytes # 3.5 K/mcL (0.0-1.3); Monocytes % 15.8 %; Nucleated Red Blood Cells 0.6 /100 WBC (0); Platelet Count 482 K/mcL (140-400); Red Blood Count 2.57 M/mcL (4.19-5.50); Red Cell Distribution Width 15.1 % (11.5-14.5); Segmented Neutrophils % 72.9 %
[2020-09-20 21:40] LABS: INR 2.8; Prothrombin Time 31.7 Seconds (9.4-12.1)
[2020-09-20] MEDS ORDERED: Piperacillin/Tazobactam 3.375 GM in 0.9 % Sodium Chloride Mini Bag 100 ML IVPB ONE (21:46)
[2020-09-20] MEDS ORDERED: Vancomycin 2,000 MG/520 ML IV.SOLN IVPB ONE (22:00)
[2020-09-20] MEDS ORDERED: 0.9 % Sodium Chloride 1,000 ML IVC ONE (22:12)
[2020-09-20 22:18] LABS: Alanine Aminotransferase 10 Units/L (7-52); Albumin 3.3 g/dL (3.5-5.7); Albumin/Globulin Ratio 0.9 (1.1-2.2); Alkaline Phosphatase 65 Units/L (34-104); Aspartate Amino Transferase 25 Units/L (13-39); BUN/Creatinine Ratio 15 (6-26); Bilirubin,Direct 0.2 mg/dL (0.0-0.2); Bilirubin,Indirect 0.6 mg/dL (0.0-1.0); Bilirubin,Total 0.8 mg/dL (0.3-1.0); Blood Urea Nitrogen 18 mg/dL (8-23); Calcium 8.7 mg/dL (8.6-10.3); Carbon Dioxide 34 mEq/L (23-29); Chloride 96 mEq/L (98-107); Globulin 3.8 g/dL (2.4-3.5); Glucose 136 mg/dL (70-105); Lipase 14 Units/L (11-82); Magnesium 1.9 mg/dL (1.6-2.6); Osmolality,Calculated 296 (280-300); Potassium 3.1 mEq/L (3.5-5.1); Sodium 141 mEq/L (136-145); Total Protein 7.1 g/dL (6.4-8.9); Troponin I 0.04 ng/mL (< 0.04); eGFR For African Americans > 60 (> 60); eGFR For Non-African Americans 59 (> 60)
[2020-09-20] MEDS ORDERED: Isovue-370 500 ML BOTTLE IVP ONE (22:27)
[2020-09-20 23:43] LABS: Bacteria,Urine Few per hpf (None-Few); Bilirubin,Urine Negative (Negative); Blood,Urine Moderate (Negative); Clarity,Urine Clear (Clear); Color,Urine Light-Yellow (Yellow); Glucose,Urine (UA) Normal (Normal); Hyaline Casts,Urine Few per lpf (None Seen); Ketones,Urine Negative (Negative); Leukocyte Esterase,Urine Negative (Negative); Nitrite,Urine Negative (Negative); Protein,Urine 30 mg/dL (Neg-Trace); RBC,Urine 0-3 per hpf (0-3); Specific Gravity,Urine 1.028 (1.010-1.025); Squamous Epithelial Cell,Urine Few per hpf (None-Few); Urobilinogen,Urine Normal (Normal); WBC,Urine 0-3 per hpf (0-3)
[2020-09-21] MEDS ORDERED: Ringers Solution, Lactated 1,000 ML IVC ONE (01:21)
[2020-09-21] MEDS ORDERED: Naloxone 0.4 MG/ML INJ IVP PRN (03:10)
[2020-09-21] MEDS ORDERED: Dextrose Gel 15 GM/37.5 ML TUBE PO PRN ×2 (03:19)
[2020-09-21] MEDS ORDERED: *HR* Dextrose 50 % in Water (Vial) 50 ML VIAL IVP PRN (03:19)
[2020-09-21] MEDS ORDERED: D5% in Water 1,000 ML IVC PRN (03:19)
[2020-09-21] MEDS ORDERED: Albuterol 2.5 MG/3 ML NEBULIZER IH PRN (04:00)
[2020-09-21 04:09] LABS: Protein/Creatinine Ratio,Urine 0.73 mg/mg (0.00-0.20); Sodium, Urine 84.3 mEq/L
[2020-09-21 04:28] LABS: % Iron Saturation 4 % (20-55); Iron 11 mcg/dL (65-175); Transferrin 205 mg/dL (203-362)
[2020-09-21 04:45] LABS: Ferritin 154 ng/mL (20-250)
[2020-09-21] MEDS ORDERED: *HR* Heparin 5,000 UNIT/ML VIAL IVP PRN ×4 (04:53→15:46)
[2020-09-21] MEDS ORDERED: Perflutren Lipid Microsphere 1.3 ML in 0.9 % Sodium Chloride 8.7 ML IVP PRN (04:53)
[2020-09-21] MEDS ORDERED: *HR* Heparin 5,000 UNIT/ML VIAL IVP ONE (04:53)
[2020-09-21] MEDS ORDERED: Heparin 25,000UNIT/250ML 1/2NS 25,000 UNIT/250 ML IV.SOLN IVC SCH ×2 (05:00→16:00)
[2020-09-21] MEDS ORDERED: Isovue-370 500 ML BOTTLE IVP ONE ×2 (05:00→11:12)
[2020-09-21 05:05] LABS: Folate 19.3 ng/mL (3.0-16.0)
[2020-09-21 05:33] LABS: Red Cell Distribution Width 15.2 % (11.5-14.5)
[2020-09-21 05:34] LABS: Hematocrit 24.2 % (37.5-50.1); Hemoglobin 7.8 g/dL (12.9-16.9); Mean Corpuscular HGB Conc 32.2 g/dL (31.6-35.5); Mean Corpuscular Hemoglobin 34.2 pg (28.0-33.3); Mean Corpuscular Volume 106.1 fL (83.0-100.0); Mean Platelet Volume 10.1 fL (9.4-12.4); Platelet Count 450 K/mcL (140-400); Red Blood Count 2.28 M/mcL (4.19-5.50); White Blood Count 24.7 K/mcL (4.3-11.1)
[2020-09-21] MEDS ORDERED: Cefepime HCl 2,000 MG in 0.9 % Sodium Chloride Mini Bag 100 ML IVPB SCH (06:00)
[2020-09-21] MEDS ORDERED: Cefepime HCl 2,000 MG in Water for inj. (sterile) 20 ML IVP SCH ×2 (06:00→14:00)
[2020-09-21 06:20] LABS: INR 3.2
[2020-09-21 06:33] LABS: Heparin anti-factor XA UFH 1.08 IU/mL (0.30-0.70)
[2020-09-21] MEDS: Insulin LISPRO 300 UNITS/3 ML VIAL SUBQ SCH ×3 (07:46→16:20)
[2020-09-21] MEDS: Tiotropium 10 INH DOSE IH SCH (07:53)
[2020-09-21] MEDS: Budesonide/Formoterol 160/4.5 1 PUFF INH IH SCH ×2 (07:54→20:05)
[2020-09-21] MEDS ORDERED: 0.9 % Sodium Chloride 1,000 ML IVC SCH (08:00)
[2020-09-21] MEDS ORDERED: Doxycycline 100 MG CAPSULE PO SCH (09:00)
[2020-09-21] MEDS ORDERED: Doxycycline 100 MG in 0.9 % Sodium Chloride Mini Bag 100 ML IVPB SCH (09:00)
[2020-09-21] MEDS: Finasteride 5 MG TABLET PO SCH (09:26)
[2020-09-21] MEDS: Aspirin Enteric Coated 81 MG Tablet PO SCH (09:26)
[2020-09-21] MEDS ORDERED: Furosemide 40 MG/4 ML VIAL IVP ONE (10:51)
[2020-09-21 10:58] LABS: Creatine Kinase 1470 Units/L (30-223); Troponin I 3.98 ng/mL (< 0.04)
[2020-09-21 11:22] LABS: BUN/Creatinine Ratio 14 (6-26); Blood Urea Nitrogen 15 mg/dL (8-23); Carbon Dioxide 35 mEq/L (23-29); Chloride 99 mEq/L (98-107); Glucose 127 mg/dL (70-105); Osmolality,Calculated 292 (280-300); Potassium 3.1 mEq/L (3.5-5.1); Sodium 140 mEq/L (136-145); eGFR For African Americans > 60 (> 60); eGFR For Non-African Americans > 60 (> 60)
[2020-09-21] MEDS ORDERED: Vancomycin 1,250 MG/262.5 ML IV.SOLN IVPB SCH (12:00)
[2020-09-21] MEDS: Vancomycin 1,750 MG/517.5 ML IV.SOLN IVPB SCH (12:28)
[2020-09-21] MEDS: Clindamycin 600 MG/50 ML 600 MG/50 ML IV.SOLN IVPB SCH ×3 (12:29→23:35)
[2020-09-21] MEDS: Piperacillin/Tazobactam 3.375 GM in 0.9 % Sodium Chloride Mini Bag 100 ML IVPB SCH ×3 (12:30→23:36)
[2020-09-21] MEDS ORDERED: Cyanocobalamin (B-12) 1,000 MCG/ML VIAL IM ONE (13:09)
[2020-09-21] MEDS: Cyanocobalamin (B-12) 1,000 MCG TABLET PO SCH (14:19)
[2020-09-21] MEDS: 0.9 % Sodium Chloride 1,000 ML IVC SCH ×2 (14:19→22:00)
[2020-09-22] MEDS: Acetaminophen 325 MG TABLET PO PRN (00:08)
[2020-09-22] MEDS: Vancomycin 1,750 MG/517.5 ML IV.SOLN IVPB SCH ×3 (02:16→23:58)
[2020-09-22] MEDS: 0.9 % Sodium Chloride 1,000 ML IVC SCH ×4 (03:57→23:58)
[2020-09-22 04:42] LABS: Basophils # 0.2 K/mcL (0.0-0.2); Basophils % 0.7 %; Eosinophils % 0.1 %; Hemoglobin 6.6 g/dL (12.9-16.9); Lymphocytes # 2.3 K/mcL (0.6-4.6); Lymphocytes % 9.5 %; Mean Corpuscular HGB Conc 31.4 g/dL (31.6-35.5); Mean Corpuscular Hemoglobin 33.8 pg (28.0-33.3); Mean Corpuscular Volume 107.7 fL (83.0-100.0); Monocytes # 3.7 K/mcL (0.0-1.3); Monocytes % 14.9 %; Neutrophils # 17.8 K/mcL (1.6-8.9); Nucleated Red Blood Cells 0.2 /100 WBC (0); Platelet Count 384 K/mcL (140-400); Red Blood Count 1.95 M/mcL (4.19-5.50); Red Cell Distribution Width 15.2 % (11.5-14.5); Segmented Neutrophils % 72.8 %; White Blood Count 24.5 K/mcL (4.3-11.1)
[2020-09-22 05:02] LABS: BUN/Creatinine Ratio 15 (6-26); Blood Urea Nitrogen 17 mg/dL (8-23); Calcium 7.3 mg/dL (8.6-10.3); Carbon Dioxide 32 mEq/L (23-29); Chloride 101 mEq/L (98-107); Glucose 111 mg/dL (70-105); Magnesium 1.8 mg/dL (1.6-2.6); Osmolality,Calculated 292 (280-300); Sodium 140 mEq/L (136-145); eGFR For African Americans > 60 (> 60); eGFR For Non-African Americans > 60 (> 60)
[2020-09-22] MEDS ORDERED: 0.9 % Sodium Chloride 250 ML ONE ×3 (07:38→14:04)
[2020-09-22] MEDS: Insulin LISPRO 300 UNITS/3 ML VIAL SUBQ SCH ×3 (07:51→16:49)
[2020-09-22] MEDS: Aspirin Enteric Coated 81 MG Tablet PO SCH (07:51)
[2020-09-22] MEDS: Clindamycin 600 MG/50 ML 600 MG/50 ML IV.SOLN IVPB SCH ×2 (07:51→16:46)
[2020-09-22] MEDS: Piperacillin/Tazobactam 3.375 GM in 0.9 % Sodium Chloride Mini Bag 100 ML IVPB SCH ×3 (07:51→23:58)
[2020-09-22] MEDS: Potassium Chloride Elixir 20 MEQ/15 ML UDC PO SCH ×2 (07:51→12:23)
[2020-09-22] MEDS: Finasteride 5 MG TABLET PO SCH (07:51)
[2020-09-22] MEDS: Cyanocobalamin (B-12) 1,000 MCG TABLET PO SCH (07:51)
[2020-09-22 08:29] LABS: Basophils # 0.2 K/mcL (0.0-0.2); Basophils % 0.7 %; Eosinophils # 0.1 K/mcL (0.0-0.6); Eosinophils % 0.2 %; Hematocrit 21.1 % (37.5-50.1); Hemoglobin 6.5 g/dL (12.9-16.9); Lymphocytes % 8.2 %; Mean Corpuscular HGB Conc 30.8 g/dL (31.6-35.5); Mean Corpuscular Hemoglobin 33.3 pg (28.0-33.3); Mean Corpuscular Volume 108.2 fL (83.0-100.0); Mean Platelet Volume 9.9 fL (9.4-12.4); Monocytes # 3.5 K/mcL (0.0-1.3); Monocytes % 14.5 %; Nucleated Red Blood Cells 0.2 /100 WBC (0); Platelet Count 394 K/mcL (140-400); Red Blood Count 1.95 M/mcL (4.19-5.50); Red Cell Distribution Width 15.4 % (11.5-14.5); Segmented Neutrophils % 74.4 %; White Blood Count 24.3 K/mcL (4.3-11.1)
[2020-09-22 08:38] LABS: INR 3.3; Prothrombin Time 37.3 Seconds (9.4-12.1)
[2020-09-22 09:40] LABS: Troponin I 2.62 ng/mL (< 0.04)
[2020-09-22] MEDS: Tiotropium 10 INH DOSE IH SCH (09:54)
[2020-09-22] MEDS: Budesonide/Formoterol 160/4.5 1 PUFF INH IH SCH ×2 (09:54→22:22)
[2020-09-22] MEDS: Gabapentin 100 MG CAPSULE PO SCH (21:01)
[2020-09-22] MEDS: Divalproex (24 HR) 500 MG TABLET PO SCH (21:01)
[2020-09-23] MEDS: Clindamycin 600 MG/50 ML 600 MG/50 ML IV.SOLN IVPB SCH (02:00)
[2020-09-23] MEDS ORDERED: Furosemide 40 MG/4 ML VIAL IVP ONE (03:53)
[2020-09-23 04:29] LABS: Basophils # 0.2 K/mcL (0.0-0.2); Eosinophils # 0.1 K/mcL (0.0-0.6); Eosinophils % 0.3 %; Hematocrit 23.4 % (37.5-50.1); Hemoglobin 7.6 g/dL (12.9-16.9); Immature Granulocytes % 2.8 % (0-4); Lymphocytes # 1.8 K/mcL (0.6-4.6); Lymphocytes % 9.2 %; Mean Corpuscular HGB Conc 32.5 g/dL (31.6-35.5); Mean Corpuscular Hemoglobin 33.2 pg (28.0-33.3); Mean Corpuscular Volume 102.2 fL (83.0-100.0); Mean Platelet Volume 9.9 fL (9.4-12.4); Monocytes # 2.6 K/mcL (0.0-1.3); Monocytes % 13.2 %; Neutrophils # 14.3 K/mcL (1.6-8.9); Nucleated Red Blood Cells 0.5 /100 WBC (0); Platelet Count 404 K/mcL (140-400); Red Blood Count 2.29 M/mcL (4.19-5.50); Red Cell Distribution Width 17.3 % (11.5-14.5); Segmented Neutrophils % 73.5 %; White Blood Count 19.4 K/mcL (4.3-11.1)
[2020-09-23 05:18] LABS: BUN/Creatinine Ratio 13 (6-26); Blood Urea Nitrogen 15 mg/dL (8-23); Calcium 7.2 mg/dL (8.6-10.3); Carbon Dioxide 26 mEq/L (23-29); Chloride 106 mEq/L (98-107); Glucose 131 mg/dL (70-105); Magnesium 1.7 mg/dL (1.6-2.6); Osmolality,Calculated 293 (280-300); Phosphorous 3.1 mg/dL (2.7-4.5); Potassium 3.4 mEq/L (3.5-5.1); Sodium 140 mEq/L (136-145); eGFR For African Americans > 60 (> 60); eGFR For Non-African Americans > 60 (> 60)
[2020-09-23 05:23] LABS: Troponin I 2.85 ng/mL (< 0.04)
[2020-09-23] MEDS: Insulin LISPRO 300 UNITS/3 ML VIAL SUBQ SCH ×4 (07:27→21:26)
[2020-09-23] MEDS: 0.9 % Sodium Chloride 1,000 ML IVC SCH (07:37)
[2020-09-23] MEDS: Finasteride 5 MG TABLET PO SCH (07:48)
[2020-09-23] MEDS: Cyanocobalamin (B-12) 1,000 MCG TABLET PO SCH (07:48)
[2020-09-23] MEDS: Potassium Chloride Elixir 20 MEQ/15 ML UDC PO SCH ×2 (07:48→11:45)
[2020-09-23] MEDS: Aspirin Enteric Coated 81 MG Tablet PO SCH (07:48)
[2020-09-23] MEDS: Piperacillin/Tazobactam 3.375 GM in 0.9 % Sodium Chloride Mini Bag 100 ML IVPB SCH ×2 (07:48→17:21)
[2020-09-23] MEDS: allopurinoL 300 MG TABLET PO SCH (07:48)
[2020-09-23] MEDS: *HR* OxyCODONE/APAP 5/325 TABLET PO PRN (07:54)
[2020-09-23] MEDS ORDERED: Furosemide 40 MG/4 ML VIAL IVP SCH ×2 (09:00→21:00)
[2020-09-23] MEDS ORDERED: MethylPREDNISolone 40 MG/ML VIAL IVP SCH (09:15)
[2020-09-23] MEDS: Isovue-370 500 ML BOTTLE IVP ONE ×2 (09:23→09:24)
[2020-09-23 10:00] LABS: Creatine Kinase 4089 Units/L (30-223)
[2020-09-23] MEDS: Ipratropium/Albuterol Neb 3 ML IH SCH ×6 (10:58→23:19)
[2020-09-23] MEDS: Budesonide/Formoterol 160/4.5 1 PUFF INH IH SCH ×2 (10:58→23:19)
[2020-09-23] MEDS: Tiotropium 10 INH DOSE IH SCH (10:59)
[2020-09-23] MEDS: Vancomycin 1,750 MG/517.5 ML IV.SOLN IVPB SCH (11:45)
[2020-09-23] MEDS: Acetaminophen 325 MG TABLET PO PRN (11:45)
[2020-09-23 13:40] LABS: Thyroid Stimulating Hormone 3.633 mcIU/mL (0.340-5.600)
[2020-09-23] MEDS ORDERED: Furosemide 20 MG TABLET PO SCH (17:00)
[2020-09-23] MEDS ORDERED: *HR* Heparin 5,000 UNIT/ML VIAL IVP PRN ×2 (18:20)
[2020-09-23] MEDS ORDERED: Heparin 25,000UNIT/250ML 1/2NS 25,000 UNIT/250 ML IV.SOLN IVC SCH (18:30)
[2020-09-23] MEDS: Gabapentin 100 MG CAPSULE PO SCH (21:28)
[2020-09-23] MEDS: Divalproex (24 HR) 500 MG TABLET PO SCH (21:29)
[2020-09-23 22:13] LABS: Hematocrit 27.1 % (37.5-50.1); Hemoglobin 8.7 g/dL (12.9-16.9); Mean Corpuscular HGB Conc 32.1 g/dL (31.6-35.5); Mean Corpuscular Volume 102.7 fL (83.0-100.0); Mean Platelet Volume 10.3 fL (9.4-12.4); Platelet Count 508 K/mcL (140-400); Red Blood Count 2.64 M/mcL (4.19-5.50); Red Cell Distribution Width 17.4 % (11.5-14.5); White Blood Count 24.5 K/mcL (4.3-11.1)
[2020-09-23 22:16] LABS: Heparin anti-factor XA UFH 0.04 IU/mL (0.30-0.70)
[2020-09-23 22:21] LABS: INR 5.4; Prothrombin Time 59.8 Seconds (9.4-12.1)
[2020-09-24] MEDS: Piperacillin/Tazobactam 3.375 GM in 0.9 % Sodium Chloride Mini Bag 100 ML IVPB SCH ×4 (01:10→23:47)
[2020-09-24] MEDS: Vancomycin 1,750 MG/517.5 ML IV.SOLN IVPB SCH (01:10)
[2020-09-24] MEDS: Insulin LISPRO 300 UNITS/3 ML VIAL SUBQ SCH ×6 (01:11→21:30)
[2020-09-24 02:14] LABS: Basophils # 0.1 K/mcL (0.0-0.2); Basophils % 0.5 %; Hematocrit 24.6 % (37.5-50.1); Hemoglobin 7.9 g/dL (12.9-16.9); Immature Granulocytes % 2.3 % (0-4); Lymphocytes # 0.8 K/mcL (0.6-4.6); Lymphocytes % 3.8 %; Mean Corpuscular HGB Conc 32.1 g/dL (31.6-35.5); Mean Corpuscular Hemoglobin 33.3 pg (28.0-33.3); Mean Corpuscular Volume 103.8 fL (83.0-100.0); Mean Platelet Volume 10.2 fL (9.4-12.4); Monocytes # 1.6 K/mcL (0.0-1.3); Monocytes % 7.3 %; Neutrophils # 18.4 K/mcL (1.6-8.9); Nucleated Red Blood Cells 0.3 /100 WBC (0); Platelet Count 460 K/mcL (140-400); Red Blood Count 2.37 M/mcL (4.19-5.50); Red Cell Distribution Width 17.3 % (11.5-14.5); Segmented Neutrophils % 86.1 %; White Blood Count 21.4 K/mcL (4.3-11.1)
[2020-09-24 02:36] LABS: Calcium 7.8 mg/dL (8.6-10.3); Magnesium 1.8 mg/dL (1.6-2.6); Phosphorous 3.1 mg/dL (2.7-4.5); Potassium 3.5 mEq/L (3.5-5.1)
[2020-09-24] MEDS: Ipratropium/Albuterol Neb 3 ML IH SCH ×6 (03:07→23:54)
[2020-09-24] MEDS: Budesonide/Formoterol 160/4.5 1 PUFF INH IH SCH ×2 (07:41→23:53)
[2020-09-24] MEDS: Tiotropium 10 INH DOSE IH SCH (07:44)
[2020-09-24] MEDS: allopurinoL 300 MG TABLET PO SCH (08:04)
[2020-09-24] MEDS: Cyanocobalamin (B-12) 1,000 MCG TABLET PO SCH (08:05)
[2020-09-24] MEDS: Finasteride 5 MG TABLET PO SCH (08:05)
[2020-09-24] MEDS: amLODIPine 5 MG TABLET PO SCH (08:05)
[2020-09-24] MEDS: Aspirin Enteric Coated 81 MG Tablet PO SCH (08:05)
[2020-09-24 09:34] LABS: Prothrombin Time 53.2 Seconds (9.4-12.1)
[2020-09-24 09:35] LABS: D-Dimer 1264 ng/mLFEU (0-500); Fibrinogen 999 mg/dL (169-393); INR 4.8
[2020-09-24] MEDS: (Imatinib Mesylate [Gleevec] 400 MG) PO SCH (10:11)
[2020-09-24] MEDS: *HR* OxyCODONE/APAP 5/325 TABLET PO PRN (13:25)
[2020-09-24] MEDS: Gabapentin 100 MG CAPSULE PO SCH (21:29)
[2020-09-24] MEDS: Divalproex (24 HR) 500 MG TABLET PO SCH (21:29)
[2020-09-25] MEDS: Ipratropium/Albuterol Neb 3 ML IH SCH ×6 (04:20→23:46)
[2020-09-25 05:47] LABS: Basophils # 0.2 K/mcL (0.0-0.2); Eosinophils # 0.1 K/mcL (0.0-0.6); Eosinophils % 0.2 %; Hematocrit 25.4 % (37.5-50.1); Hemoglobin 8.1 g/dL (12.9-16.9); Immature Granulocytes % 4.6 % (0-4); Lymphocytes # 1.5 K/mcL (0.6-4.6); Lymphocytes % 6.6 %; Mean Corpuscular HGB Conc 31.9 g/dL (31.6-35.5); Mean Corpuscular Hemoglobin 32.4 pg (28.0-33.3); Mean Corpuscular Volume 101.6 fL (83.0-100.0); Mean Platelet Volume 10.4 fL (9.4-12.4); Monocytes # 2.2 K/mcL (0.0-1.3); Monocytes % 9.8 %; Neutrophils # 17.2 K/mcL (1.6-8.9); Nucleated Red Blood Cells 1.2 /100 WBC (0); Platelet Count 568 K/mcL (140-400); Segmented Neutrophils % 77.8 %; White Blood Count 22.1 K/mcL (4.3-11.1)
[2020-09-25 06:58] LABS: Calcium 7.9 mg/dL (8.6-10.3); Magnesium 1.9 mg/dL (1.6-2.6); Phosphorous 3.4 mg/dL (2.7-4.5); Potassium 4.1 mEq/L (3.5-5.1)
[2020-09-25] MEDS: Tiotropium 10 INH DOSE IH SCH (07:35)
[2020-09-25] MEDS: Budesonide/Formoterol 160/4.5 1 PUFF INH IH SCH ×2 (07:35→20:28)
[2020-09-25] MEDS: Piperacillin/Tazobactam 3.375 GM in 0.9 % Sodium Chloride Mini Bag 100 ML IVPB SCH ×3 (09:09→23:49)
[2020-09-25] MEDS: Finasteride 5 MG TABLET PO SCH (09:10)
[2020-09-25] MEDS: Furosemide 20 MG/2 ML VIAL IVP SCH (09:10)
[2020-09-25] MEDS: allopurinoL 300 MG TABLET PO SCH (09:10)
[2020-09-25] MEDS: Aspirin Enteric Coated 81 MG Tablet PO SCH (09:11)
[2020-09-25] MEDS: amLODIPine 5 MG TABLET PO SCH (09:11)
[2020-09-25] MEDS: Cyanocobalamin (B-12) 1,000 MCG TABLET PO SCH (09:11)
[2020-09-25] MEDS: Insulin LISPRO 300 UNITS/3 ML VIAL SUBQ SCH ×4 (09:12→19:30)
[2020-09-25] MEDS: (Imatinib Mesylate [Gleevec] 400 MG) PO SCH (09:31)
[2020-09-25 10:42] LABS: INR 2.5; Prothrombin Time 27.8 Seconds (9.4-12.1)
[2020-09-25] MEDS: Iron Sucrose Complex 200 MG in 0.9 % Sodium Chloride 100 ML IVPB SCH (10:46)
[2020-09-25] MEDS: Divalproex (24 HR) 500 MG TABLET PO SCH (19:30)
[2020-09-25] MEDS: Gabapentin 100 MG CAPSULE PO SCH (19:30)
[2020-09-26] MEDS: Ipratropium/Albuterol Neb 3 ML IH SCH ×6 (04:23→23:21)
[2020-09-26 07:19] LABS: Basophils # 0.2 K/mcL (0.0-0.2); Hematocrit 26.6 % (37.5-50.1); Hemoglobin 8.5 g/dL (12.9-16.9); Lymphocytes # 1.8 K/mcL (0.6-4.6); Mean Corpuscular Hemoglobin 32.7 pg (28.0-33.3); Mean Corpuscular Volume 102.3 fL (83.0-100.0); Nucleated Red Blood Cells 2.2 /100 WBC (0); Platelet Count 722 K/mcL (140-400); White Blood Count 22.4 K/mcL (4.3-11.1)
[2020-09-26 07:21] LABS: INR 2.2; Prothrombin Time 24.8 Seconds (9.4-12.1)
[2020-09-26 07:33] LABS: BUN/Creatinine Ratio 18 (6-26); Blood Urea Nitrogen 24 mg/dL (8-23); Calcium 8.2 mg/dL (8.6-10.3); Carbon Dioxide 31 mEq/L (23-29); Chloride 104 mEq/L (98-107); Creatine Kinase 931 Units/L (30-223); Glucose 143 mg/dL (70-105); Osmolality,Calculated 301 (280-300); Phosphorous 3.4 mg/dL (2.7-4.5); Potassium 3.7 mEq/L (3.5-5.1); Sodium 142 mEq/L (136-145); eGFR For African Americans > 60 (> 60); eGFR For Non-African Americans 52 (> 60)
[2020-09-26] MEDS: Tiotropium 10 INH DOSE IH SCH (07:39)
[2020-09-26] MEDS: Budesonide/Formoterol 160/4.5 1 PUFF INH IH SCH ×2 (07:40→20:03)
[2020-09-26] MEDS: Insulin LISPRO 300 UNITS/3 ML VIAL SUBQ SCH ×4 (07:50→22:11)
[2020-09-26 07:59] LABS: Monocytes # 1.8 K/mcL (0.0-1.3); Neutrophils # 18.1 K/mcL (1.6-8.9)
[2020-09-26 08:00] LABS: Anisocytosis 1+ (Not Present); Platelet Estimate Marked Increase (Normal); Polychromasia 1+ (Not Present)
[2020-09-26] MEDS: Aspirin Enteric Coated 81 MG Tablet PO SCH (08:10)
[2020-09-26] MEDS: Furosemide 20 MG/2 ML VIAL IVP SCH (08:11)
[2020-09-26] MEDS: amLODIPine 5 MG TABLET PO SCH (08:11)
[2020-09-26] MEDS: allopurinoL 300 MG TABLET PO SCH (08:11)
[2020-09-26] MEDS: Piperacillin/Tazobactam 3.375 GM in 0.9 % Sodium Chloride Mini Bag 100 ML IVPB SCH ×2 (08:12→16:28)
[2020-09-26] MEDS: Cyanocobalamin (B-12) 1,000 MCG TABLET PO SCH (08:13)
[2020-09-26] MEDS: (Imatinib Mesylate [Gleevec] 400 MG) PO SCH (08:13)
[2020-09-26] MEDS: Iron Sucrose Complex 200 MG in 0.9 % Sodium Chloride 100 ML IVPB SCH (08:13)
[2020-09-26] MEDS: Finasteride 5 MG TABLET PO SCH (08:13)
[2020-09-26] MEDS ORDERED: Vancomycin 500 MG in 0.9 % Sodium Chloride Mini Bag 100 ML IVPB ONE (12:00)
[2020-09-26] MEDS ORDERED: Heparin 1,000 UNITS/500 mL 500 ML ONE (14:27)
[2020-09-26] MEDS ORDERED: *HR* FentaNYL (PF) 100 MCG/2 ML VIAL ONE (14:38)
[2020-09-26] MEDS ORDERED: *HR* Midazolam HCl 2 MG/2 ML VIAL ONE (14:38)
[2020-09-26] MEDS ORDERED: 0.9 % Sodium Chloride 1,000 ML ONE (14:38)
[2020-09-26] MEDS: Divalproex (24 HR) 500 MG TABLET PO SCH (21:46)
[2020-09-26] MEDS: Gabapentin 100 MG CAPSULE PO SCH (21:47)
[2020-09-27] MEDS: Piperacillin/Tazobactam 3.375 GM in 0.9 % Sodium Chloride Mini Bag 100 ML IVPB SCH ×3 (00:24→16:29)
[2020-09-27] MEDS: Ipratropium/Albuterol Neb 3 ML IH SCH ×6 (04:04→23:38)
[2020-09-27 04:58] LABS: Hematocrit 26.9 % (37.5-50.1); Hemoglobin 8.5 g/dL (12.9-16.9); Mean Corpuscular HGB Conc 31.6 g/dL (31.6-35.5); Mean Corpuscular Hemoglobin 32.6 pg (28.0-33.3); Mean Corpuscular Volume 103.1 fL (83.0-100.0); Mean Platelet Volume 9.9 fL (9.4-12.4); Nucleated Red Blood Cells 3.1 /100 WBC (0); Platelet Count 722 K/mcL (140-400); Red Blood Count 2.61 M/mcL (4.19-5.50); Red Cell Distribution Width 16.8 % (11.5-14.5); White Blood Count 18.3 K/mcL (4.3-11.1)
[2020-09-27 05:01] LABS: INR 3.1; Prothrombin Time 34.7 Seconds (9.4-12.1)
[2020-09-27 05:16] LABS: BUN/Creatinine Ratio 18 (6-26); Blood Urea Nitrogen 24 mg/dL (8-23); Calcium 8.3 mg/dL (8.6-10.3); Carbon Dioxide 32 mEq/L (23-29); Chloride 104 mEq/L (98-107); Glucose 111 mg/dL (70-105); Magnesium 2.2 mg/dL (1.6-2.6); Osmolality,Calculated 301 (280-300); Phosphorous 4.3 mg/dL (2.7-4.5); Potassium 3.9 mEq/L (3.5-5.1); Sodium 143 mEq/L (136-145); eGFR For African Americans > 60 (> 60); eGFR For Non-African Americans 52 (> 60)
[2020-09-27 05:39] LABS: Eosinophils # 0.4 K/mcL (0.0-0.6); Lymphocytes # 2.2 K/mcL (0.6-4.6); Monocytes # 1.8 K/mcL (0.0-1.3); Neutrophils # 12.8 K/mcL (1.6-8.9); Platelet Estimate Marked Increase (Normal)
[2020-09-27 05:40] LABS: Anisocytosis 1+ (Not Present)
[2020-09-27 05:41] LABS: Large Platelets Present (Not Present)
[2020-09-27] MEDS: Budesonide/Formoterol 160/4.5 1 PUFF INH IH SCH ×2 (07:40→19:52)
[2020-09-27] MEDS: Tiotropium 10 INH DOSE IH SCH (07:42)
[2020-09-27] MEDS: Furosemide 20 MG/2 ML VIAL IVP SCH (09:30)
[2020-09-27] MEDS: Cyanocobalamin (B-12) 1,000 MCG TABLET PO SCH (09:30)
[2020-09-27] MEDS: amLODIPine 5 MG TABLET PO SCH (09:30)
[2020-09-27] MEDS: allopurinoL 300 MG TABLET PO SCH (09:30)
[2020-09-27] MEDS: Aspirin Enteric Coated 81 MG Tablet PO SCH (09:30)
[2020-09-27] MEDS: Finasteride 5 MG TABLET PO SCH (09:30)
[2020-09-27] MEDS: (Imatinib Mesylate [Gleevec] 400 MG) PO SCH (09:31)
[2020-09-27] MEDS: Insulin LISPRO 300 UNITS/3 ML VIAL SUBQ SCH ×4 (09:31→20:35)
[2020-09-27 18:13] LABS: ABG Base Excess 8 mEq/L (-2 to 3); ABG HCO3 35 mEq/L (21-27); ABG Oxygen Saturation 93 % (95-98); ABG PCO2 56 mmHg (35-45); ABG PH 7.41 pH Units (7.32-7.45); ABG PO2 67 mmHg (85-104); ABG TCO2 37 mEq/L (20-26)
[2020-09-27] MEDS: Gabapentin 100 MG CAPSULE PO SCH (20:36)
[2020-09-27] MEDS: Divalproex (24 HR) 500 MG TABLET PO SCH (20:38)
[2020-09-28] MEDS: Piperacillin/Tazobactam 3.375 GM in 0.9 % Sodium Chloride Mini Bag 100 ML IVPB SCH ×4 (00:11→23:49)
[2020-09-28 01:51] LABS: Hematocrit 24.4 % (37.5-50.1); Hemoglobin 7.7 g/dL (12.9-16.9); Lymphocytes # 2.2 K/mcL (0.6-4.6); Mean Corpuscular HGB Conc 31.6 g/dL (31.6-35.5); Mean Corpuscular Hemoglobin 32.1 pg (28.0-33.3); Mean Corpuscular Volume 101.7 fL (83.0-100.0); Mean Platelet Volume 9.6 fL (9.4-12.4); Nucleated Red Blood Cells 3.1 /100 WBC (0); Platelet Count 704 K/mcL (140-400); Red Cell Distribution Width 16.6 % (11.5-14.5); White Blood Count 18.2 K/mcL (4.3-11.1)
[2020-09-28 02:11] LABS: BUN/Creatinine Ratio 21 (6-26); Blood Urea Nitrogen 26 mg/dL (8-23); Carbon Dioxide 30 mEq/L (23-29); Chloride 103 mEq/L (98-107); Creatine Kinase 689 Units/L (30-223); Glucose 105 mg/dL (70-105); Magnesium 2.1 mg/dL (1.6-2.6); Osmolality,Calculated 297 (280-300); Phosphorous 4.2 mg/dL (2.7-4.5); Sodium 141 mEq/L (136-145); eGFR For African Americans > 60 (> 60); eGFR For Non-African Americans 59 (> 60)
[2020-09-28 02:43] LABS: Monocytes # 0.7 K/mcL (0.0-1.3); Neutrophils # 15.3 K/mcL (1.6-8.9)
[2020-09-28 02:44] LABS: Anisocytosis 1+ (Not Present); Platelet Estimate Marked Decrease (Normal)
[2020-09-28 03:12] LABS: INR 3.6; Prothrombin Time 39.7 Seconds (9.4-12.1)
[2020-09-28] MEDS: Ipratropium/Albuterol Neb 3 ML IH SCH ×5 (04:12→20:24)
[2020-09-28] MEDS: Furosemide 20 MG/2 ML VIAL IVP SCH ×2 (07:35→17:06)
[2020-09-28] MEDS: Cyanocobalamin (B-12) 1,000 MCG/ML VIAL IM SCH (07:36)
[2020-09-28] MEDS: amLODIPine 5 MG TABLET PO SCH (07:36)
[2020-09-28] MEDS: Aspirin Enteric Coated 81 MG Tablet PO SCH (07:36)
[2020-09-28] MEDS: allopurinoL 300 MG TABLET PO SCH (07:36)
[2020-09-28] MEDS: Finasteride 5 MG TABLET PO SCH (07:36)
[2020-09-28] MEDS: Insulin LISPRO 300 UNITS/3 ML VIAL SUBQ SCH ×4 (07:37→20:41)
[2020-09-28] MEDS: Budesonide/Formoterol 160/4.5 1 PUFF INH IH SCH ×2 (07:49→20:27)
[2020-09-28] MEDS: Tiotropium 10 INH DOSE IH SCH (07:51)
[2020-09-28] MEDS ORDERED: *HR* Phytonadione 10 MG/ML AMPUL SQ ONE (14:07)
[2020-09-28] MEDS: *HR* OxyCODONE/APAP 5/325 TABLET PO PRN (16:02)
[2020-09-28] MEDS: Divalproex (24 HR) 500 MG TABLET PO SCH (20:40)
[2020-09-28] MEDS: Gabapentin 100 MG CAPSULE PO SCH (20:41)
[2020-09-29] MEDS: Ipratropium/Albuterol Neb 3 ML IH SCH ×7 (00:02→23:32)
[2020-09-29 07:22] LABS: Hematocrit 24.3 % (37.5-50.1); Hemoglobin 7.6 g/dL (12.9-16.9); Mean Corpuscular HGB Conc 31.3 g/dL (31.6-35.5); Mean Corpuscular Hemoglobin 32.5 pg (28.0-33.3); Mean Corpuscular Volume 103.8 fL (83.0-100.0); Mean Platelet Volume 9.9 fL (9.4-12.4); Platelet Count 665 K/mcL (140-400); Red Blood Count 2.34 M/mcL (4.19-5.50); Red Cell Distribution Width 16.8 % (11.5-14.5); White Blood Count 15.7 K/mcL (4.3-11.1)
[2020-09-29 07:32] LABS: INR 1.7; Prothrombin Time 19.2 Seconds (9.4-12.1)
[2020-09-29] MEDS: Budesonide/Formoterol 160/4.5 1 PUFF INH IH SCH ×2 (07:43→19:53)
[2020-09-29] MEDS: Tiotropium 10 INH DOSE IH SCH (07:46)
[2020-09-29 07:57] LABS: BUN/Creatinine Ratio 18 (6-26); Blood Urea Nitrogen 25 mg/dL (8-23); Calcium 7.8 mg/dL (8.6-10.3); Carbon Dioxide 34 mEq/L (23-29); Chloride 102 mEq/L (98-107); Creatine Kinase 603 Units/L (30-223); Glucose 148 mg/dL (70-105); Osmolality,Calculated 299 (280-300); Potassium 3.8 mEq/L (3.5-5.1); Sodium 141 mEq/L (136-145); eGFR For African Americans > 60 (> 60); eGFR For Non-African Americans 51 (> 60)
[2020-09-29] MEDS: Aspirin Enteric Coated 81 MG Tablet PO SCH (08:46)
[2020-09-29] MEDS: Finasteride 5 MG TABLET PO SCH (08:46)
[2020-09-29] MEDS: Cyanocobalamin (B-12) 1,000 MCG/ML VIAL IM SCH (08:47)
[2020-09-29] MEDS: Piperacillin/Tazobactam 3.375 GM in 0.9 % Sodium Chloride Mini Bag 100 ML IVPB SCH ×3 (08:47→23:19)
[2020-09-29] MEDS: Furosemide 20 MG/2 ML VIAL IVP SCH ×2 (08:47→15:54)
[2020-09-29] MEDS: allopurinoL 300 MG TABLET PO SCH (08:47)
[2020-09-29] MEDS: amLODIPine 5 MG TABLET PO SCH (08:47)
[2020-09-29] MEDS: Insulin LISPRO 300 UNITS/3 ML VIAL SUBQ SCH ×4 (08:55→21:20)
[2020-09-29] MEDS: Gabapentin 100 MG CAPSULE PO SCH (21:19)
[2020-09-29] MEDS: Divalproex (24 HR) 500 MG TABLET PO SCH (21:20)
[2020-09-29] MEDS: *HR* OxyCODONE/APAP 5/325 TABLET PO PRN (23:20)
[2020-09-30] MEDS: Ipratropium/Albuterol Neb 3 ML IH SCH ×6 (03:24→23:49)
[2020-09-30 06:03] LABS: INR 1.3; Prothrombin Time 14.9 Seconds (9.4-12.1)
[2020-09-30 06:10] LABS: BUN/Creatinine Ratio 18 (6-26); Blood Urea Nitrogen 24 mg/dL (8-23); Calcium 8.1 mg/dL (8.6-10.3); Carbon Dioxide 35 mEq/L (23-29); Chloride 101 mEq/L (98-107); Glucose 94 mg/dL (70-105); Osmolality,Calculated 296 (280-300); Potassium 3.8 mEq/L (3.5-5.1); Sodium 141 mEq/L (136-145); eGFR For African Americans > 60 (> 60); eGFR For Non-African Americans 52 (> 60)
[2020-09-30] MEDS: Insulin LISPRO 300 UNITS/3 ML VIAL SUBQ SCH ×4 (07:02→21:00)
[2020-09-30] MEDS: Aspirin Enteric Coated 81 MG Tablet PO SCH (07:15)
[2020-09-30] MEDS: Finasteride 5 MG TABLET PO SCH (07:15)
[2020-09-30] MEDS: allopurinoL 300 MG TABLET PO SCH (07:15)
[2020-09-30] MEDS: amLODIPine 5 MG TABLET PO SCH (07:15)
[2020-09-30] MEDS: Cyanocobalamin (B-12) 1,000 MCG/ML VIAL IM SCH (07:15)
[2020-09-30] MEDS: Furosemide 20 MG/2 ML VIAL IVP SCH ×2 (07:16→17:09)
[2020-09-30] MEDS: Tiotropium 10 INH DOSE IH SCH (07:35)
[2020-09-30] MEDS: Budesonide/Formoterol 160/4.5 1 PUFF INH IH SCH ×2 (07:35→20:14)
[2020-09-30] MEDS: Gabapentin 100 MG CAPSULE PO SCH (20:59)
[2020-09-30] MEDS: Divalproex (24 HR) 500 MG TABLET PO SCH (21:00)
[2020-10-01] MEDS: Ipratropium/Albuterol Neb 3 ML IH SCH ×5 (03:23→20:09)
[2020-10-01 05:40] LABS: Hematocrit 25.3 % (37.5-50.1); Hemoglobin 7.8 g/dL (12.9-16.9); Mean Corpuscular HGB Conc 30.8 g/dL (31.6-35.5); Mean Corpuscular Hemoglobin 32.4 pg (28.0-33.3); Mean Platelet Volume 9.9 fL (9.4-12.4); Platelet Count 730 K/mcL (140-400); Red Blood Count 2.41 M/mcL (4.19-5.50); Red Cell Distribution Width 16.5 % (11.5-14.5)
[2020-10-01 06:12] LABS: BUN/Creatinine Ratio 17 (6-26); Blood Urea Nitrogen 23 mg/dL (8-23); Calcium 8.4 mg/dL (8.6-10.3); Carbon Dioxide 34 mEq/L (23-29); Chloride 100 mEq/L (98-107); Glucose 100 mg/dL (70-105); Osmolality,Calculated 294 (280-300); Potassium 4.1 mEq/L (3.5-5.1); Sodium 140 mEq/L (136-145); eGFR For African Americans > 60 (> 60); eGFR For Non-African Americans 52 (> 60)
[2020-10-01] MEDS: Insulin LISPRO 300 UNITS/3 ML VIAL SUBQ SCH ×4 (07:19→22:42)
[2020-10-01] MEDS: Tiotropium 10 INH DOSE IH SCH (08:14)
[2020-10-01] MEDS: Budesonide/Formoterol 160/4.5 1 PUFF INH IH SCH ×2 (08:15→20:10)
[2020-10-01] MEDS: Furosemide 20 MG/2 ML VIAL IVP SCH ×2 (08:41→17:54)
[2020-10-01] MEDS: Aspirin Enteric Coated 81 MG Tablet PO SCH (08:42)
[2020-10-01] MEDS: allopurinoL 300 MG TABLET PO SCH (08:42)
[2020-10-01] MEDS: Finasteride 5 MG TABLET PO SCH (08:42)
[2020-10-01] MEDS: Acetaminophen 325 MG TABLET PO PRN (08:42)
[2020-10-01] MEDS: Cyanocobalamin (B-12) 1,000 MCG/ML VIAL IM SCH (08:44)
[2020-10-01] MEDS: amLODIPine 5 MG TABLET PO SCH (08:50)
[2020-10-01] MEDS: Gabapentin 100 MG CAPSULE PO SCH (21:00)
[2020-10-01] MEDS: Divalproex (24 HR) 500 MG TABLET PO SCH (21:00)
[2020-10-02] MEDS: Ipratropium/Albuterol Neb 3 ML IH SCH ×7 (00:02→23:36)
[2020-10-02 06:12] LABS: BUN/Creatinine Ratio 19 (6-26); Blood Urea Nitrogen 24 mg/dL (8-23); Calcium 8.6 mg/dL (8.6-10.3); Carbon Dioxide 36 mEq/L (23-29); Chloride 100 mEq/L (98-107); Glucose 118 mg/dL (70-105); Osmolality,Calculated 295 (280-300); Potassium 4.3 mEq/L (3.5-5.1); Sodium 140 mEq/L (136-145); eGFR For African Americans > 60 (> 60); eGFR For Non-African Americans 57 (> 60)
[2020-10-02] MEDS: Insulin LISPRO 300 UNITS/3 ML VIAL SUBQ SCH ×4 (07:09→20:30)
[2020-10-02] MEDS: Tiotropium 10 INH DOSE IH SCH (07:58)
[2020-10-02] MEDS: Budesonide/Formoterol 160/4.5 1 PUFF INH IH SCH ×2 (07:58→20:22)
[2020-10-02] MEDS: Finasteride 5 MG TABLET PO SCH (08:18)
[2020-10-02] MEDS: amLODIPine 5 MG TABLET PO SCH (08:18)
[2020-10-02] MEDS: Furosemide 20 MG/2 ML VIAL IVP SCH (08:18)
[2020-10-02] MEDS: Cyanocobalamin (B-12) 1,000 MCG/ML VIAL IM SCH (08:18)
[2020-10-02] MEDS: Aspirin Enteric Coated 81 MG Tablet PO SCH (08:18)
[2020-10-02] MEDS: allopurinoL 300 MG TABLET PO SCH (08:18)
[2020-10-02] MEDS: Furosemide 40 MG TABLET PO SCH (16:32)
[2020-10-02] MEDS: Gabapentin 100 MG CAPSULE PO SCH (20:42)
[2020-10-02] MEDS: Divalproex (24 HR) 500 MG TABLET PO SCH (20:43)
[2020-10-03 02:25] LABS: Hematocrit 26.5 % (37.5-50.1); Hemoglobin 8.1 g/dL (12.9-16.9); Mean Corpuscular HGB Conc 30.6 g/dL (31.6-35.5); Mean Corpuscular Volume 104.7 fL (83.0-100.0); Platelet Count 732 K/mcL (140-400); Red Blood Count 2.53 M/mcL (4.19-5.50); Red Cell Distribution Width 16.4 % (11.5-14.5); White Blood Count 24.7 K/mcL (4.3-11.1)
[2020-10-03 02:44] LABS: BUN/Creatinine Ratio 19 (6-26); Blood Urea Nitrogen 23 mg/dL (8-23); Calcium 8.8 mg/dL (8.6-10.3); Carbon Dioxide 34 mEq/L (23-29); Chloride 99 mEq/L (98-107); Glucose 106 mg/dL (70-105); Osmolality,Calculated 292 (280-300); Potassium 4.2 mEq/L (3.5-5.1); Sodium 139 mEq/L (136-145); eGFR For African Americans > 60 (> 60); eGFR For Non-African Americans 58 (> 60)
[2020-10-03 02:46] LABS: Magnesium 2.4 mg/dL (1.6-2.6)
[2020-10-03] MEDS: Ipratropium/Albuterol Neb 3 ML IH SCH ×2 (03:41→08:25)
[2020-10-03] MEDS: Insulin LISPRO 300 UNITS/3 ML VIAL SUBQ SCH (07:36)
[2020-10-03] MEDS: Furosemide 40 MG TABLET PO SCH (07:41)
[2020-10-03] MEDS: Aspirin Enteric Coated 81 MG Tablet PO SCH (07:41)
[2020-10-03] MEDS: amLODIPine 5 MG TABLET PO SCH (07:41)
[2020-10-03] MEDS: Finasteride 5 MG TABLET PO SCH (07:41)
[2020-10-03] MEDS: allopurinoL 300 MG TABLET PO SCH (07:41)
[2020-10-03] MEDS: Budesonide/Formoterol 160/4.5 1 PUFF INH IH SCH (08:26)
[2020-10-03] MEDS: Tiotropium 10 INH DOSE IH SCH (08:30)
[2020-10-03 10:55] VITALS: BP 122/61
[2020-10-04 13:53] LABS: BCR-ABL1 Source NOT SPECIFIED
[2020-10-04 14:21] LABS: BCR-ABL1 Major (p210) Result DETECTED
== END 2020-10-03 11:10 | DRG 871 ==
LOC: EMEROOARM 20:46 → 2ANU 20:46 → SUATTDRO 09-22 17:38
PROVIDERS: ADMIT Internal Medicine; ATTEND Internal Medicine